=== PATIENT | female | born 1950 | race Two or more races ===

== ENCOUNTER 2019-11-08 11:57 | Outpatient (REF) | payer MEDICARE, SELFPAY ==
[2019-11-08 14:21] LABS: Alanine Aminotransferase 14 U/L (0-31); Albumin Level 4.1 g/dL (3.5-5.0); Alkaline Phosphatase 85 U/L (39-117); Anion Gap 10 (12-20); Aspartate Amino Transferase 16 U/L (5-31); Bilirubin Total 0.6 mg/dL (0.0-1.0); Blood Urea Nitrogen 11 mg/dL (9-16); Calcium 8.9 mg/dL (8.4-10.2); Carbon Dioxide 30 mmol/L (22-29); Chloride 102 mmol/L (96-108); Cholesterol 167 mg/dL; Estimated Glomerular Filt Rate > 60; Glucose Fasting 119 mg/dL (60-99); HDL Cholesterol 35 mg/dL; LDL Cholesterol Calculated 92 mg/dl; Potassium 4.4 mmol/l (3.3-5.1); Sodium 138 mmol/L (135-145); Total Protein 7.6 g/dL (6.5-8.0); Triglycerides 204 mg/dL
[2019-11-08 14:44] LABS: Vitamin D 25-OH Total 18.5 ng/mL (>30)
[2019-11-08 15:01] LABS: Folate 12.7 ng/mL (> or = 4.0); Vitamin B12 360 pg/mL (200-900)
== END 2019-11-08 11:58 | disposition home or self-care (01) ==
LOC: HO.LAB 11:57
PROVIDERS: PCP Internal Medicine; Visit Provider Internal Medicine
DX: R73.02 Impaired glucose tolerance (oral) (principal); E78.00 Pure hypercholesterolemia, unspecified; E66.01 Morbid (severe) obesity due to excess calories; E53.8 Deficiency of other specified B group vitamins; G47.33 Obstructive sleep apnea (adult) (pediatric); K21.9 Gastro-esophageal reflux disease without esophagitis; I10 Essential (primary) hypertension; E55.9 Vitamin D deficiency, unspecified
CPT/HCPCS: 36415; 80053; 80061; 82306; 82607; 82746

== ENCOUNTER 2020-05-19 13:42 | Outpatient (REF) | payer MEDICARE, SELFPAY ==
--- NOTE | ~2020-05-19 | MM_ITS ---
EXAMINATION: MM SCREENING DIGITAL BREAST TOMOSYNTHESIS, BILATERAL CLINICAL INFORMATION: Screening. Asymptomatic. The lifetime risk of breast cancer based on the Tyrer-Cuzick Model is 3%. COMPARISON: Mammography: 02/20/2019, 02/14/2018, 12/09/2016, 11/27/2015 TECHNIQUE: Digital breast tomosynthesis is performed in both the craniocaudal and mediolateral oblique views along with computer-aided detection (CAD). Synthesized 2D images are generated from the tomosynthesis. FINDINGS: There are scattered areas of fibroglandular density (ACR BI-RADS breast composition Category b). There are no significant masses, abnormal calcifications, or other abnormalities. Parenchymal pattern is similar to prior exams. No developing density. No significant changes. MM/MM tomosynthesis screening BI IMPRESSION: No mammographic evidence of malignancy. ASSESSMENT: BI-RADS 1: Negative RECOMMENDATION: Routine annual mammography screening. This patient's information was entered into a reminder system with a target due date for their next mammogram.
[2020-05-19 16:51] LABS: Estimated Average Glucose 140 mg/dL; Hemoglobin A1c % 6.5 %
[2020-05-19 16:53] LABS: Alanine Aminotransferase 13 U/L (0-31); Alkaline Phosphatase 87 U/L (39-117); Anion Gap 12 (12-20); Aspartate Amino Transferase 14 U/L (5-31); Bilirubin Total 0.5 mg/dL (0.0-1.0); Blood Urea Nitrogen 14 mg/dL (9-16); Carbon Dioxide 28 mmol/L (22-29); Chloride 103 mmol/L (96-108); Cholesterol 170 mg/dL; Estimated Glomerular Filt Rate > 60; Glucose Random 115 mg/dL (60-115); HDL Cholesterol 40 mg/dL; LDL Cholesterol Calculated 97 mg/dl; Potassium 4.6 mmol/L (3.3-5.1); Sodium 138 mmol/L (135-145); Total Protein 7.8 g/dL (6.5-8.0); Triglycerides 167 mg/dL
[2020-05-19 16:54] LABS: Creatinine Urine 82.47 mg/dL; Microalbumin Urine < 5.0 mg/L
== END 2020-05-19 13:43 | disposition home or self-care (01) ==
LOC: HO.MAMMO 13:42
PROVIDERS: Absent Provider Internal Medicine; PCP Internal Medicine; Visit Provider Internal Medicine
DX: Z12.31 Encounter for screening mammogram for malignant neoplasm of breast (principal); E78.00 Pure hypercholesterolemia, unspecified; E11.65 Type 2 diabetes mellitus with hyperglycemia
CPT/HCPCS: 36415; 77063; 77067; 80053; 80061; 82043; 83036

== ENCOUNTER 2020-12-17 10:40 | Outpatient (REF) | payer MEDICARE, SELFPAY ==
--- NOTE | ~2020-12-17 | US_ITS ---
EXAMINATION: US ABDOMEN COMPLETE CLINICAL INFORMATION: Right upper quadrant pain. COMPARISON: Ultrasound abdomen 12/09/2011. TECHNIQUE: Real-time imaging of the abdominal viscera. FINDINGS: PANCREAS: The head and body the pancreas are normal. The tail is not well visualized due to bowel gas. ABDOMINAL AORTA: The proximal, mid, and distal segments are normal in caliber. INFERIOR VENA CAVA: Visualized portions are normal. LIVER: The liver is normal in size. The liver contour is normal. Liver echotexture is increased. No focal hepatic lesion. There is no intrahepatic biliary duct dilatation seen. GALLBLADDER: Normal. The gallbladder is physiologically distended without evidence of stones, sludge, polyps, wall thickening or pericholecystic fluid. COMMON BILE DUCT: Normal in caliber measuring 0.6 cm in diameter. RIGHT KIDNEY: There is a small cyst in the lower pole measuring 8 x 4 x 7 mm. No hydronephrosis or renal calculi. The kidney measures 11.4 cm in maximum dimension. LEFT KIDNEY: Normal. No hydronephrosis. No renal calculi or focal parenchymal lesions. The kidney measures 11.0 cm in maximum dimension. SPLEEN: Normal. The spleen measures 9.4 cm in maximum dimension. FREE FLUID: None. US/US abdomen complete IMPRESSION: Slightly echogenic liver probably representing fatty infiltration. Normal-appearing gallbladder. Small right renal cyst. Limited visualization of the tail of the pancreas.
== END 2020-12-17 10:41 | disposition home or self-care (01) ==
LOC: HO.US 10:40
PROVIDERS: PCP Internal Medicine; Visit Provider Internal Medicine
DX: R10.11 Right upper quadrant pain (principal)
CPT/HCPCS: 76700

== ENCOUNTER 2021-03-19 11:08 | Outpatient (REF) | payer MEDICARE, SELFPAY ==
--- NOTE | ~2021-03-19 | XR_ITS ---
EXAMINATION: XR HIP, RIGHT CLINICAL INFORMATION: Trochanteric bursitis. Hip and back pain. COMPARISON: None TECHNIQUE: Two views of the right hip. FINDINGS: The visualized right-sided pelvic bones are normal. The right femoral head is well-positioned within the intact acetabulum. The hip joint space is normal. The femoral head is normal contour. No lytic or blastic lesion. The soft tissues are unremarkable. XR/XR hip RT min 2V IMPRESSION: No significant radiographic findings of the right hip. No evidence of degenerative joint disease or fracture.
--- NOTE | ~2021-03-19 | XR_ITS ---
EXAMINATION: XR LUMBOSACRAL SPINE CLINICAL INFORMATION: Pain COMPARISON: None TECHNIQUE: Three views of the lumbosacral spine. FINDINGS: No acute fracture or dislocation. Moderate scoliosis of the mid lumbar spine, apex right at L3. Prominent endplate ossified present throughout the lumbar spine and lower thoracic spine. Moderate loss of disc space height at L5-S1. Bulky hypertrophic facet arthropathy present throughout the lumbar spine, most notably at L5-S1. Mild bilateral sacroiliac arthrosis. Soft tissues unremarkable. XR/XR lumbar spine 2-3V IMPRESSION: No acute findings. Lumbar spondylosis as described.
== END 2021-03-19 11:09 | disposition home or self-care (01) ==
LOC: HO.LAB 11:08
PROVIDERS: PCP Internal Medicine; Visit Provider Internal Medicine
DX: M70.61 Trochanteric bursitis, right hip (principal); M54.50 Low back pain, unspecified
CPT/HCPCS: 72100; 73502

== ENCOUNTER 2021-04-01 14:07 | Outpatient (REF) | payer MEDICARE, SELFPAY ==
[2021-04-01 15:16] LABS: MANUAL DIFF FLAG NO
[2021-04-01 15:24] LABS: Basophils Percent Auto 0.4 % (0-2); Eosinophils Absolute Auto 0.2 X10*3/uL (0.0-0.4); Eosinophils Percent Auto 3.3 % (0-4); Hematocrit 41.8 % (37.0-47.0); Imm Gran Abs Auto 0.02 X10*3/uL (0.00-0.03); Imm Gran Pct Auto 0.3 % (0.0-0.4); Lymphocytes Absolute Auto 2.1 X10*3/uL (1.2-4.9); Lymphocytes Percent Auto 30.1 % (20-40); Mean Corpuscular HGB Conc 31.1 g/dl (31.0-35.0); Mean Corpuscular Hemoglobin 25.7 pg (27.0-33.0); Mean Corpuscular Volume 82.6 fL (80.0-98.0); Mean Platelet Volume 10.4 fL (9.4-12.3); Monocytes Absolute Auto 0.6 X10*3/uL (0.1-1.2); Monocytes Percent Auto 8.7 % (2-11); Neutrophils Percent Auto 57.2 % (45-73); Platelet Count 272 X10*3/uL (160-400); Red Blood Count 5.06 X10*6/uL (4.20-5.50); Red Cell Distribution Width 13.2 % (11.0-16.0); White Blood Count 6.9 X10*3/uL (4.8-10.8)
[2021-04-01 15:38] LABS: Estimated Average Glucose 137 mg/dL; Hemoglobin A1c % 6.4 %
[2021-04-01 15:49] LABS: Alanine Aminotransferase 14 U/L (0-31); Alkaline Phosphatase 83 U/L (39-117); Anion Gap 10 (12-20); Aspartate Amino Transferase 20 U/L (5-31); Bilirubin Total 0.8 mg/dL (0.0-1.0); Blood Urea Nitrogen 12 mg/dL (9-16); Calcium 9.6 mg/dL (8.4-10.2); Carbon Dioxide 31 mmol/L (22-29); Chloride 102 mmol/L (96-108); Cholesterol 157 mg/dL; Estimated Glomerular Filt Rate > 60; Glucose Random 121 mg/dL (60-115); HDL Cholesterol 37 mg/dL; LDL Cholesterol Calculated 96 mg/dl; Potassium 5.2 mmol/L (3.3-5.1); Sodium 138 mmol/L (135-145); Total Protein 7.6 g/dL (6.5-8.0); Triglycerides 122 mg/dL
[2021-04-01 16:11] LABS: Free T4 (Free Thyroxine) 1.04 ng/dL (0.71-1.85); Thyroid Stimulating Hormone 1.65 uIU/mL (0.32-4.0); Vitamin D 25-OH Total 15.8 ng/mL (>30)
[2021-04-01 16:20] LABS: Folate 9.7 ng/mL (> or = 4.0); Vitamin B12 327 pg/mL (200-900)
[2021-04-01 17:26] LABS: Creatinine Urine 85.28 mg/dL; Microalbumin Urine < 5.0 mg/L
[2021-04-01 17:31] LABS: Appearance Urine CLEAR; Color Urine YELLOW; Glucose Urine UA NEG (NEG); Leukocyte Esterase Urine TRACE (NEG); Nitrite Urine NEG (NEG); Specific Gravity - Urine 1.015 (1.005-1.025); Urine Blood TRACE (NEG); Urine Ketones NEG (NEG); Urine Protein NEG (NEG-TRACE)
[2021-04-01 17:37] LABS: Bacteria Urine 2+ /LPF; RBC Urine 0 /HPF (0); Squamous Epithelial Cell Urine 2+ /LPF
[2021-04-01 17:38] LABS: Mucus Urine 2+ /LPF; Renal Epithelial Cells Urine 1+ /LPF
== END 2021-04-01 14:08 | disposition home or self-care (01) ==
LOC: HO.LAB 14:07
PROVIDERS: Absent Provider Internal Medicine; PCP Internal Medicine; Visit Provider Physician Assistant
DX: M54.50 Low back pain, unspecified (principal); E11.65 Type 2 diabetes mellitus with hyperglycemia; E78.00 Pure hypercholesterolemia, unspecified; K21.9 Gastro-esophageal reflux disease without esophagitis; E55.9 Vitamin D deficiency, unspecified
CPT/HCPCS: 36415; 80053; 80061; 81001; 82043; 82306; 82607; 82746; 83036; 84439; 84443; 85025; 99202

== ENCOUNTER 2021-06-02 13:11 | Outpatient (REF) | payer MEDICARE, SELFPAY ==
--- NOTE | ~2021-06-02 | MM_ITS ---
EXAMINATION: MM SCREENING DIGITAL BREAST TOMOSYNTHESIS, BILATERAL CLINICAL INFORMATION: Screening. Asymptomatic. The lifetime risk of breast cancer based on the Tyrer-Cuzick Model is 3%. COMPARISON: Mammography: 05/19/2020, 02/20/2019, 02/14/2018, 12/09/2016 TECHNIQUE: Digital breast tomosynthesis is performed in both the craniocaudal and mediolateral oblique views along with computer-aided detection (CAD). Synthesized 2D images are generated from the tomosynthesis. Additional bilateral CC and left MLO views are provided. FINDINGS: There are scattered areas of fibroglandular density (ACR BI-RADS breast composition Category b). Left breast has a stable oval nodule posterior outer quadrant. Neither breast shows abnormal calcifications. The bilateral axilla are unremarkable. The CC views with nipples in profile show smooth skin thickening bilateral lateral areolar with coarsening of the stromal markings. The symmetry suggests artifact from incompletely compressed tissue. Patient will be recalled for additional imaging. MM/MM tomosynthesis screening BI IMPRESSION: -Increased attenuation and stromal markings bilateral retroareolar breasts likely incompletely compressed glandular tissue. ASSESSMENT: BI-RADS 0: Incomplete - Need Additional Imaging Evaluation RECOMMENDATION: 1. Additional views of the bilateral breasts: Bilateral spot CC nipples in profile; bilateral spot ML nipple in profile. Targeted ultrasound if warranted after review of the additional views. 2. Radiology department staff will contact the patient for additional imaging. This patient's information was entered into a reminder system with a target due date for their next mammogram.
== END 2021-06-02 13:12 | disposition home or self-care (01) ==
LOC: HO.MAMMO 13:11
PROVIDERS: Visit Provider Internal Medicine
DX: Z12.31 Encounter for screening mammogram for malignant neoplasm of breast (principal)
CPT/HCPCS: 77063; 77067

== ENCOUNTER 2021-06-08 07:56 | Outpatient (REF) | payer MEDICARE, SELFPAY ==
--- NOTE | ~2021-06-08 | MM_ITS ---
EXAMINATION: MM DIAGNOSTIC DIGITAL BREAST TOMOSYNTHESIS, BILATERAL CLINICAL INFORMATION: Recall from screening for increased attenuation stromal markings bilateral retroareolar breasts on CC views, likely incompletely compressed glandular tissue. COMPARISON: Mammography: 06/02/2021, 05/19/2020, 02/20/2019 TECHNIQUE: Digital breast tomosynthesis is performed. 2D images are generated from the tomosynthesis. The following views are obtained: Bilateral spot CC nipple in profile, bilateral spot ML nipple in profile. FINDINGS: There are scattered areas of fibroglandular density (ACR BI-RADS breast composition Category b). The additional views show no interval mass or developing density or architectural abnormality. No focal skin thickening or other suspicious finding. No significant changes. Results are discussed with the patient at time of visit. MM/MM tomosynthesis added view BI IMPRESSION: No mammographic evidence of malignancy. ASSESSMENT: BI-RADS 1: Negative RECOMMENDATION: Routine annual mammography screening. This patient's information was entered into a reminder system with a target due date for their next mammogram.
== END 2021-06-08 07:57 | disposition home or self-care (01) ==
LOC: HO.MAMMO 07:56
PROVIDERS: Visit Provider Internal Medicine
DX: N64.89 Other specified disorders of breast (principal)
CPT/HCPCS: 77062; 77066

== ENCOUNTER 2022-06-10 12:57 | Outpatient (REF) | payer MEDICARE, SELFPAY ==
--- NOTE | ~2022-06-10 | MM_ITS ---
EXAMINATION: MM SCREENING DIGITAL BREAST TOMOSYNTHESIS, BILATERAL CLINICAL INFORMATION: Screening. Asymptomatic. The lifetime risk of breast cancer based on the Tyrer-Cuzick Model is 3%. COMPARISON: Mammography: 04/08/2021, 06/02/2021, 05/19/2020, 02/20/2019 TECHNIQUE: Digital breast tomosynthesis is performed in both the craniocaudal and mediolateral oblique views along with computer-aided detection (CAD). Synthesized 2D images are generated from the tomosynthesis. FINDINGS: There are scattered areas of fibroglandular density (ACR BI-RADS breast composition Category b). There are no significant masses, abnormal calcifications, or other abnormalities. Parenchymal pattern is similar to prior studies. There is no developing density or architectural abnormality. The axilla and skin contours are unremarkable. No significant changes. MM/MM tomosynthesis screening BI IMPRESSION: No mammographic evidence of malignancy. ASSESSMENT: BI-RADS 1: Negative RECOMMENDATION: Routine annual mammography screening. This patient's information was entered into a reminder system with a target due date for their next mammogram.
== END 2022-06-10 12:58 | disposition home or self-care (01) ==
LOC: HO.MAMMO 12:57
PROVIDERS: PCP Internal Medicine; Visit Provider Internal Medicine
DX: Z12.31 Encounter for screening mammogram for malignant neoplasm of breast (principal)
CPT/HCPCS: 77063; 77067

== ENCOUNTER 2022-07-15 14:12 | Outpatient (REF) | payer MEDICARE, SELFPAY ==
--- NOTE | ~2022-07-15 | US_ITS ---
EXAMINATION: US RETROPERITONEAL LIMITED (RENAL ONLY) CLINICAL INFORMATION: Unspecified abdominal pain. COMPARISON: Ultrasound abdomen complete 12/17/2020. TECHNIQUE: Real-time imaging of the kidneys. FINDINGS: RIGHT KIDNEY: 11.3 x 6.1 x 6.3 cm (SAG x AP x TRV). The kidney is normal in size, contour, and echogenicity. Renal cortical thickness is normal. No calculi or focal parenchymal lesions. No hydronephrosis. LEFT KIDNEY: 11.8 x 6.2 x 5.0 cm (SAG x AP x TRV). The kidney is normal in size, contour, and echogenicity. Renal cortical thickness is normal. No calculi or focal parenchymal lesions. No hydronephrosis. US/US renal BI IMPRESSION: Normal-appearing kidneys.
--- NOTE | ~2022-07-15 | US_ITS ---
EXAMINATION: US PELVIS CLINICAL INFORMATION: Pelvic and perineal pain. COMPARISON: None available. TECHNIQUE: Ultrasound of the pelvis is performed using both transabdominal and transvaginal transducers along with Doppler. Transvaginal imaging is performed due to inadequate visualization transabdominally. FINDINGS: UTERUS: The uterus is anteverted and measures 8.0 x 2.8 x 3.7 cm. The double wall endometrial thickness is 0.6 mm. The uterus is smooth in contour and mildly heterogeneous echogenicity. No visible fibroid. Nabothian cysts are seen in the cervix ADNEXA: Both ovaries are visualized. There is normal color flow to the adnexa. There is no ovarian torsion. There is no pelvic ascites or fluid collection. Right ovary measures 1.6 x 1.1 x 1.7 cm for a volume 1.6 mL. Left ovary measures 1.7 x 1.3 x 1.4 cm for a volume of 1.6 mL. US/US pelvic and transvaginal IMPRESSION: No significant abnormality is seen.
== END 2022-07-15 14:13 | disposition home or self-care (01) ==
LOC: HO.US 14:12
PROVIDERS: PCP Internal Medicine; Visit Provider Internal Medicine
DX: R10.2 Pelvic and perineal pain (principal); R10.9 Unspecified abdominal pain
CPT/HCPCS: 76775; 76830; 76856

== ENCOUNTER 2022-08-08 15:08 | Outpatient (REF) | payer MEDICARE, SELFPAY ==
[2022-08-08 20:06] LABS: Alanine Aminotransferase 11 U/L (0-31); Albumin Level 3.9 g/dL (3.5-5.0); Alkaline Phosphatase 79 U/L (39-117); Anion Gap 15 (12-20); Aspartate Amino Transferase 15 U/L (5-31); Bilirubin Total 0.5 mg/dL (0.0-1.0); Blood Urea Nitrogen 16 mg/dL (9-16); Calcium 9.3 mg/dL (8.4-10.2); Carbon Dioxide 26 mmol/L (22-29); Chloride 104 mmol/L (96-108); Estimated Glomerular Filt Rate > 60; Glucose Random 95 mg/dL (60-115); Potassium 4.5 mmol/L (3.3-5.1); Sodium 140 mmol/L (135-145)
[2022-08-08 20:22] LABS: TSH reflex Free T4 1.85 uIU/mL (0.32-4.0)
== END 2022-08-08 15:09 | disposition home or self-care (01) ==
LOC: HO.LAB 15:08
PROVIDERS: PCP Internal Medicine; Visit Provider Nurse Practitioner Family
DX: Z01.812 Encounter for preprocedural laboratory examination (principal)
CPT/HCPCS: 36415; 80053; 84443; 85025

== ENCOUNTER 2022-08-15 08:10 | Day surgery (SDC) | payer MEDICARE, SELFPAY ==
[2022-08-10 09:51] VITALS: BMI 38.6
--- NOTE | 2022-08-12 08:06 | MHC.SHP ---
Pre-Procedural Eval Section A Date of Service: 08/12/22 The patient is an INPATIENT: No Changes since office visit: No Cold of Flu in the past 2 weeks, No New Medical Problems, No Changes in Medication and No Patient answered all questions The History & Physical has been completed within 30 days and I have reviewed it.: Yes Section B Chief Complaint: Age-related nuclear cataract, right eye Allergies: Allergies Allergy/AdvReac Type Severity Reaction Status Date / Time No Known Allergies Allergy Mild NONE Verified 08/08/22 14:48 Plan Diagnosis/Plan: Unchanged I have reviewed the history and physical and performed a pertinent physical examination on my patient. No changes have occurred unless specified. Time Spent With Patient Time: Total time managing care of this patient today ____ minutes.
--- NOTE | 2022-08-12 10:24 | HO.ANESPROP2 ---
Documented by User: Kristie Amato NP 08/12/22 10:24 HPI - Anesthesia Eval Consult details Narrative: 72yo F for Right Cataract Extraction IOL Insertion PCP cleared No previous cataract on record [facility] Active Problems Active Problems: All Active Problems (Updated 08/10/22 @ 09:50 by Ninoska Jeronimo, RAI) Obesity due to excess calories (Acute) Perioral tremor (Acute) Generalized anxiety disorder (Acute) Trochanteric bursitis (Acute) Right flank pain (Acute) Pelvic pain (Acute) Diarrhea (Acute) Obesity (Acute) Vitamin D deficiency (Acute) Hypertension (Acute) GERD (gastroesophageal reflux disease) (Acute) Obstructive sleep apnea (Acute) Vitamin B12 deficiency (Acute) Hypercholesterolemia (Acute) Type 2 diabetes mellitus with hyperglycemia (Acute) Past Medical History Medical History GERD (gastroesophageal reflux disease) Glaucoma Hypercholesterolemia Hypertension Low back pain Obesity Obstructive sleep apnea RUQ abdominal pain Type 2 diabetes mellitus with hyperglycemia Vision loss, left eye Vitamin B12 deficiency Vitamin D deficiency Family History Family History Father Diabetes Hypertension FH: prostate cancer Mother Hypertension Diabetes Stroke CVD (cardiovascular disease) CAD (coronary artery disease) Daughter Cerebrovascular disease Brother Primary cancer of bone marrow Surgical History Surgical History Hx of colonoscopy Social History Social History Housing: House Are you a primary caretaker to a significant other at home: No Do you presently have visiting nurse or other home services: No Alcohol intake: never Patient Tobacco Use Status: Never used Tobacco e-Cigarette/Vaping Use: Never Used Second Hand Smoke Exposure: No Use of substances other than those prescribed or required for medical reasons: No Have you been hit, kicked, punched, or otherwise hurt by someone within the past year? If so, by whom?: No Are you DNR?: No Advance Directives: No Advance Directives Information Provided: Yes Advance Directives on File: No Recently lost weight without trying: No Nutrition Risks: No Nutritional Risk service: No Current occupational status: retired Cognitive needs: No Hearing needs: No Vision needs: No Meds Allergies Allergy/AdvReac Type Severity Reaction Status Date / Time No Known Allergies Allergy Mild NONE Verified 08/08/22 14:48 Home Medications Medication Instructions Recorded Confirmed Last Taken Type latanoprost 0.005 % eye drops 1 drp ophthalmic (eye) QPM 11/14/19 08/10/22 Unknown History timolol 0.5 % eye drops 1 drp ophthalmic (eye) DAILY 11/14/19 08/10/22 Unknown History dorzolamide 22.3 mg-timolol 6.8 1 drp ophthalmic (eye) 08/08/22 08/08/22 Unknown History mg/mL eye drops psyllium husk 0.52 gram capsule 0.52 g PO BEDTIME PRN constipation 08/10/22 08/10/22 Unknown History (Daily Fiber) Exam Exam Date and Time: August 12, 2022 1024 Height,Weight and Vital Signs: Height 5 ft 4 in Weight 102.058 kg Assessment and Plan Assessment Anesthesia Assessment: Chart Reviewed Documented by User: Guera Reich MD 08/15/22 10:11 [facility] Past Medical History Medical History GERD (gastroesophageal reflux disease) Glaucoma Hypercholesterolemia Hypertension Low back pain Obesity Obstructive sleep apnea RUQ abdominal pain Type 2 diabetes mellitus with hyperglycemia Vision loss, left eye Vitamin B12 deficiency Vitamin D deficiency Family History Family History Father Diabetes Hypertension FH: prostate cancer Mother Hypertension Diabetes Stroke CVD (cardiovascular disease) CAD (coronary artery disease) Daughter Cerebrovascular disease Brother Primary cancer of bone marrow Surgical History Surgical History Hx of colonoscopy History of Problems with Anesthesia: No Social History Social History Housing: House Are you a primary caretaker to a significant other at home: No Do you presently have visiting nurse or other home services: No Alcohol intake: never Patient Tobacco Use Status: Never used Tobacco e-Cigarette/Vaping Use: Never Used Second Hand Smoke Exposure: No Use of substances other than those prescribed or required for medical reasons: No Have you been hit, kicked, punched, or otherwise hurt by someone within the past year? If so, by whom?: No Are you DNR?: No Advance Directives: No Advance Directives Information Provided: Yes Advance Directives on File: No Recently lost weight without trying: No Nutrition Risks: No Nutritional Risk service: No Current occupational status: retired Cognitive needs: No Hearing needs: No Vision needs: No Meds Allergies Allergy/AdvReac Type Severity Reaction Status Date / Time No Known Allergies Allergy Mild NONE Verified 08/08/22 14:48 Home Medications Medication Instructions Recorded Confirmed Last Taken Type latanoprost 0.005 % eye drops 1 drp ophthalmic (eye) QPM 11/14/19 08/10/22 Unknown History timolol 0.5 % eye drops 1 drp ophthalmic (eye) DAILY 11/14/19 08/10/22 Unknown History dorzolamide 22.3 mg-timolol 6.8 1 drp ophthalmic (eye) 08/08/22 08/08/22 Unknown History mg/mL eye drops psyllium husk 0.52 gram capsule 0.52 g PO BEDTIME PRN constipation 08/10/22 08/10/22 Unknown History (Daily Fiber) Exam Airway Mallampati Class: II TM Dist: >3cm Neck ROM: Full Denture: Upper Loose/Missing/Broken Teeth: Yes and Upper Heart: RRR Lungs: CTA Assessment and Plan Assessment Anesthesia Assessment: Anesthesia Plan Discussed Final Anesthetic Review History of Problems with Anesthesia: No NPO: Yes ASA Class: III Final Preanesthetic Review: Meds/Allgs Chart Reviewed, Consent Obtained/Reviewed and Anes Risks/Benef Reviewed Patient Risk: Intermediate Procedure Risk: Low Anesthetic Plan Anesthetic Plan: MAC:
[2022-08-15 10:07] VITALS: BP 199/100; PULSE 76; RESP 18; TEMP 37; O2SAT 97
--- NOTE | 2022-08-15 10:52 | HO.PNOPHT ---
Ophthalmology Procedure Procedure Date of Service: 08/15/22 Ophthalmology Viscoelastic: Healjuani Irvingt Dual Pack Pro Ophthalmology Lenses: TECNIS XV4329 (23.5) Procedure Notes: PREOPERATIVE DIAGNOSIS: Decreased visual acuity right eye secondary to cataract POSTOPERATIVE DIAGNOSIS: Same PROCEDURE: Right cataract extraction with intraocular lens insertion SURGEON: Jay Wallace M.D. ANESTHESIA: Topical/MAC ESTIMATED BLOOD LOSS: None COMPLICATIONS: None After obtaining informed consent, the patient was brought to the operating room suite and placed in the supine position. After adequate sedation per anesthesia, topical drops of Tetracaine were given to the right eye. The eye was then prepped and draped in the usual sterile fashion. The operating room microscope was then positioned over the operative eye and a lid speculum placed. A paracentesis was created. Viscoelastic was then instilled into the anterior chamber. A three plane incision was then created temporally, utilizing a 2.85 mm keratome. Capsulotomy forceps were then utilized to create a circular tear capsulotomy. Hydrodissection and hydrodelineation were carried out until adequate mobilization of the nucleus occurred. Phacoemulsification was then utilized to remove the dense central nucleus followed by removal of the cortical material utilizing the automated aspiration irrigation unit. Viscoelastic was instilled into the posterior capsular bag followed by placement of a posterior chamber intraocular lens without difficulty. The residual Viscoelastic was then removed utilizing the automated IA machine. The wound was checked and found to be watertight. The patient tolerated the procedure well and the lid speculum was removed. Intracameral injection of Vigamox 0.1 mL followed by a subtenon injection of Kenalog-40 0.2 mL were administered. The patient will be seen in the a.m.
[2022-08-15 11:16] VITALS: BP 148/83; PULSE 75; RESP 20; TEMP 36.9; O2SAT 99
== END 2022-08-15 11:34 | disposition home or self-care (01) ==
PROVIDERS: PCP Internal Medicine; Visit Provider Ophthalmology
PROC: (CPT 66985; principal; 2022-08-15 11:00)
DX: H25.11 Age-related nuclear cataract, right eye (principal); H54.7 Unspecified visual loss; E11.9 Type 2 diabetes mellitus without complications; I10 Essential (primary) hypertension; E78.00 Pure hypercholesterolemia, unspecified; Z79.899 Other long term (current) drug therapy
CPT/HCPCS: 66984; J3010; J3301; V2632

== ENCOUNTER 2022-10-11 13:07 | Outpatient (REF) | payer MEDICARE, SELFPAY ==
[2022-10-11 13:25] LABS: MANUAL DIFF FLAG NO
[2022-10-11 14:05] LABS: Basophils Percent Auto 0.5 % (0-2); Eosinophils Absolute Auto 0.2 X10*3/uL (0.0-0.4); Eosinophils Percent Auto 2.9 % (0-4); Hematocrit 42.9 % (37.0-47.0); Hemoglobin 13.6 g/dl (12.0-16.0); Imm Gran Abs Auto 0.02 X10*3/uL (0.00-0.03); Imm Gran Pct Auto 0.3 % (0.0-0.4); Lymphocytes Absolute Auto 2.2 X10*3/uL (1.2-4.9); Lymphocytes Percent Auto 27.6 % (20-40); Mean Corpuscular HGB Conc 31.7 g/dl (31.0-35.0); Mean Corpuscular Hemoglobin 26.2 pg (27.0-33.0); Mean Corpuscular Volume 82.7 fL (80.0-98.0); Mean Platelet Volume 11.1 fL (9.4-12.3); Monocytes Absolute Auto 0.6 X10*3/uL (0.1-1.2); Monocytes Percent Auto 7.4 % (2-11); Neutrophils Absolute Auto 4.8 x10*3/uL (2.0-8.3); Neutrophils Percent Auto 61.3 % (45-73); Platelet Count 272 X10*3/uL (160-400); Red Blood Count 5.19 X10*6/uL (4.20-5.50); Red Cell Distribution Width 13.2 % (11.0-16.0); White Blood Count 7.8 X10*3/uL (4.8-10.8)
[2022-10-11 14:20] LABS: Appearance Urine Clear; Color Urine Yellow; Glucose Urine UA Negative (Negative); Leukocyte Esterase Urine Trace (Negative); Nitrite Urine Negative (Negative); Specific Gravity - Urine 1.015 (1.005-1.025); UMIC TRIGGER UACC YES; Urine Blood Negative (Negative); Urine Ketones Negative (Negative); Urine Protein Negative (Neg-Trace)
[2022-10-11 14:24] LABS: Bacteria Urine None Seen (None Seen); Hyaline Casts Urine 0-2 /LPF (0-2); RBC Urine 0-2 /HPF (0-2); WBC Urine 0-5 /HPF (0-5)
[2022-10-11 15:06] LABS: Creatinine Urine 105.05 mg/dL; Microalbumin Urine < 5.0 mg/L
[2022-10-11 15:39] LABS: Folate 5.5 ng/mL (> or = 4.0); Vitamin B12 292 pg/mL (200-900)
[2022-10-11 16:15] LABS: Alanine Aminotransferase 9 U/L (0-31); Albumin Level 3.9 g/dL (3.5-5.0); Alkaline Phosphatase 83 U/L (39-117); Anion Gap 10 (12-20); Aspartate Amino Transferase 14 U/L (5-31); Bilirubin Total 0.4 mg/dL (0.0-1.0); Blood Urea Nitrogen 11 mg/dL (9-16); Calcium 9.3 mg/dL (8.4-10.2); Carbon Dioxide 27 mmol/L (22-29); Chloride 107 mmol/L (96-108); Cholesterol 189 mg/dL (<200); Estimated Glomerular Filt Rate 58; Glucose Random 117 mg/dL (60-115); HDL Cholesterol 39 mg/dL (>40); LDL Cholesterol Calculated 120 mg/dL (<100); Potassium 4.4 mmol/L (3.3-5.1); Sodium 140 mmol/L (135-145); Total Protein 7.8 g/dL (6.5-8.0); Triglycerides 153 mg/dL (<150)
[2022-10-11 16:29] LABS: Free T4 (Free Thyroxine) 1.08 ng/dL (0.71-1.85); Thyroid Stimulating Hormone 2.35 uIU/mL (0.32-4.0)
[2022-10-12 04:10] LABS: HBc Num1 0.09 S/CO (0.00-0.79); HBsAGNum1 0.38 S/CO (0.00-0.99); Hepatitis B Core Antibody Nonreactive (Nonreactive); Hepatitis B Surface Antigen Negative (Negative); ~HepC Num1 0.06 S/CO (0.00-0.79); ~Hepatitis B Surface Antibody NONREACTIVE (Nonreactive); ~Hepatitis C Antibody Nonreactive (Nonreactive)
== END 2022-10-11 13:08 | disposition home or self-care (01) ==
LOC: HO.LAB 13:07
PROVIDERS: PCP Internal Medicine; Visit Provider Internal Medicine
DX: E11.65 Type 2 diabetes mellitus with hyperglycemia (principal); R79.89 Other specified abnormal findings of blood chemistry; E78.00 Pure hypercholesterolemia, unspecified; E55.9 Vitamin D deficiency, unspecified
CPT/HCPCS: 36415; 80053; 80061; 81001; 82043; 82306; 82570; 82607; 82746; 84439; 84443; 85025; 86704; 86706; 86803; 87340

== ENCOUNTER 2022-10-14 12:36 | Outpatient (AMB) | payer MEDICARE, SELFPAY ==
--- NOTE | 2022-10-14 12:51 | A.OFFPC_ITS ---
Vital Signs 10/14/22 12:53 10/14/22 13:16 Height 5 ft 4 in Weight 224 lb BMI 38.4 BP 140/64 H 134/64 Blood Pressure Location Lt brachial Lt brachial Position Sitting Sitting Pulse 79 Pulse Source Pulse Oximeter Temp Source Skin Pulse Oximetry (%) 97 Oxygen Delivery Method Room Air Intake Visit Reasons: Diabetes mellitus flank pain Allergies No Known Allergies Allergy (Mild, Verified 08/08/22 14:48) NONE Medication List - Last Reconciled 10/14/22 by Ramesh Aguillon MD cholecalciferol (vitamin D3) 50 mcg PO DAILY 90 days cyanocobalamin (vitamin B-12) 1,000 mcg PO DAILY dorzolamide-timolol 22.3-6.8 mg/mL 1 drp ophthalmic (eye) latanoprost 0.005% 1 drp ophthalmic (eye) QPM lisinopril 5 mg PO DAILY omeprazole 20 mg PO DAILY psyllium husk (Daily Fiber) 0.52 grams PO BEDTIME PRN simvastatin 20 mg PO BEDTIME timolol 0.5% 1 drp ophthalmic (eye) DAILY tramadol 50 mg PO BID PRN 90 days Tobacco use date assessed: 10/14/22 Fall risk assessment: No Falls in past year Last assessed Fall Risk: 10/14/22 Dental Screening Dental Screen Date: 10/14/22 Did you have a dental visit in the last 12 months?: Yes Did you have a dental problem in the last 6 months where you did not have access to dental care?: No Was dental information given to patient?: Patient has dentist HPI Diabetes mellitus flank pain HPI Details 72-year-old obese female with diabetes m ellitus controlled hypercholesterolemia hypertension coming in for follow-up. Last seen in August 2022 for preoperative evaluation for cataract surgery. patient is here for follow-up patient's colonoscopy is up-to-date, mammogram is up-to-date cataract surgery and feels good seen better. As for cholesterol patient did try to stop the cholesterol medication for 1 month. She just tried it and she did not really feel bad with or without it but she has started taking it back again. [facility] Medical History GERD (gastroesophageal reflux disease) Glaucoma Hypercholesterolemia Hypertension Low back pain Obesity Obstructive sleep apnea RUQ abdominal pain Type 2 diabetes mellitus with hyperglycemia Vision loss, left eye Vitamin B12 deficiency Vitamin D deficiency Surgical History Hx of colonoscopy Family History Father Diabetes Hypertension FH: prostate cancer Mother Hypertension Diabetes Stroke CVD (cardiovascular disease) CAD (coronary artery disease) Daughter Cerebrovascular disease Brother Primary cancer of bone marrow Social History Housing: House Are you a primary laboratory animal caretaker to a significant other at home: No Do you presently have visiting nurse or other home services: No Alcohol intake: never Patient Tobacco Use Status: Never used Tobacco e-Cigarette/Vaping Use: Never Used Second Hand Smoke Exposure: No service: No Current occupational status: retired Cognitive needs: No Hearing needs: No Vision needs: No Questionnaire Thrive Questionnaire Date Thrive assessed: 06/28/22 AUDIT C Alcohol Use Questionnaire (AUDIT-C) 1. How often do you have a drink containing alcohol?: Never 3. How often do you have six or more drinks on one occasion?: Never Total Score: 0 CLAUDETTE-7 AMB Questionnaire CLAUDETTE-7 Date CLAUDETTE - 7 assessed: 06/28/22 Source: Developed by Drs. Mo Bhatt, Tania Humphries, Travis Bowles and colleagues, with an educational laura from [employer]. Physical exam (Primary Care) Vital Signs: Last Vital Signs Pulse 79 10/14/22 12:53 BP 140/64 H 10/14/22 12:53 Pulse Ox 97 10/14/22 12:53 Oxygen Delivery Method Room Air 10/14/22 12:53 BMI result Body Mass Index 38.4 Tobacco/Smoking Status: Tobacco use Status Tobacco use date assessed 10/14/22 10/14/22 12:59 Patient Tobacco Use Status Never used Tobacco 10/14/22 12:51 e-Cigarette/Vaping Use Never Used 10/14/22 12:51 Thrive Assessment: Date of Thrive Assessment Date Thrive assessed 06/28/22 10/14/22 12:51 Const General: alert; No acute distress Eyes Conjunctivae: conjunctivae normal Resp Auscultation: clear to auscultation bilaterally Cardio Rate: regular rate Rhythm: regular rhythm GI Inspection: Yes normal to inspection Extrem General: Yes normal to inspection and No edema Results AMB Hemoglobin A1c AMB Hemoglobin A1c 6.0 % Last Edit by CHEPE Napier on 10/14/22 13:02 Results Reviewed Results Reviewed: Laboratory Last Values Hgb A1c (Clinic) 6.0 % (4.0-6.0) 10/14/22 12:51 Assessment and Plan Assessment & Plan (1) Type 2 diabetes mellitus with hyperglycemia: Comment: Dr. Soliman Code(s): E11.65 - Type 2 diabetes mellitus with hyperglycemia Qualifiers: Diabetes mellitus superintendent container terminal insulin use: without superintendent container terminal use Qualified Code(s): E11.65 - Type 2 diabetes mellitus with hyperglycemia Plan: Decrease the amount of carbohydrate intake, pasta, bread, rice and potatoes are all sugar and that is aside from all the sweet stuff, remember that fruits are good but they are Sweet also. Hemoglobin A1c goal of less than 7.0. Patient is diet controlled (2) Hypercholesterolemia: Code(s): E78.00 - Pure hypercholesterolemia, unspecified Plan: Avoid fried foods, chicken skin, eggs, butter margarine, pastries and meat. Be it pork or beef they have a lot of cholesterol LDL goal of less than 100 and triglyceride of less than 150 patient is on simvastatin concern about the blood work LDL is high (3) GERD (gastroesophageal reflux disease): Code(s): K21.9 - Gastro-esophageal reflux disease without esophagitis Plan: Avoid the foods that causes that usually spicy foods, tomato products, juices, coffee, soda and foods that your sensitive to. After eating do not lie down, allow 3-4 hours before in lie down. And keep the head of bed above 30 degrees to avoid the acid from going up. On omeprazole (4) Hypertension: Code(s): I10 - Essential (primary) hypertension Qualifiers: Hypertension type: essential hypertension Qualified Code(s): I10 - Essential (primary) hypertension Plan: Continue with blood pressure medication. Decrease salt intake and exercise patient takes lisinopril 5 mg once a day (5) Obesity: Code(s): E66.9 - Obesity, unspecified Qualifiers: Obesity type: due to excess calories Obesity classification: adult class 3 (BMI >= 40) Serious obesity comorbidity presence: with serious comorbidity Body mass index: BMI 40.0-44.9 Qualified Code(s): E66.01 - Morbid (severe) obesity due to excess calories; Z68.41 - Body mass index [BMI]40.0- 44.9, adult Plan: Diet and exercise (6) Generalized anxiety disorder: Code(s): F41.1 - Generalized anxiety disorder Orders: Orders AMB Hemoglobin A1c Today E11.65 - Type 2 diabetes mellitus with hyperglycemia Medications: New cyanocobalamin (vitamin B-12) 1,000 mcg PO DAILY 30 caps 3RF E53.8 - Deficiency of other specified B group vitamins cholecalciferol (vitamin D3) 50 mcg PO DAILY 90 days 90 caps 3RF E53.8 - Deficiency of other specified B group vitamins, E55.9 - Vitamin D deficiency, unspecified Coding Level of Care Code Est Pt Level 4 (32777) Diagnoses Type 2 diabetes mellitus with hyperglycemia, without long-term current use of insulin E11.65 Diabetes mellitus superintendent container terminal insulin use: without superintendent container terminal use Hypercholesterolemia E78.00 GERD (gastroesophageal reflux disease) K21.9 Essential hypertension I10 Hypertension type: essential hypertension Class 3 severe obesity due to excess calories with serious comorbidity and body mass index (BMI) of 40.0 to 44.9 in adult E66.01; Z68.41 Obesity type: due to excess calories Obesity classification: adult class 3 (BMI >= 40) Serious obesity comorbidity presence: with serious comorbidity Body mass index: BMI 40.0-44.9 Generalized anxiety disorder F41.1
[2022-10-14 12:53] VITALS: BP 140/64; PULSE 79; O2SAT 97; BMI 38.4
[2022-10-14 13:16] VITALS: BP 134/64
== END 2022-10-14 13:36 | disposition home or self-care (01) ==
PROVIDERS: PCP Internal Medicine; Visit Provider Internal Medicine
DX: E11.65 Type 2 diabetes mellitus with hyperglycemia (principal); K21.9 Gastro-esophageal reflux disease without esophagitis; E66.01 Morbid (severe) obesity due to excess calories; Z68.41 Body mass index [BMI] 40.0-44.9, adult; Z23 Encounter for immunization; I10 Essential (primary) hypertension; E78.00 Pure hypercholesterolemia, unspecified; F41.1 Generalized anxiety disorder
CPT/HCPCS: 83036; 90471; 90714; 99214

== ENCOUNTER 2023-01-27 14:26 | Outpatient (AMB) | payer MEDICARE, SELFPAY ==
[2023-01-27 14:29] VITALS: BP 148/78; PULSE 102; O2SAT 97; BMI 37.4
--- NOTE | 2023-01-27 14:29 | MHC.PC.OV ---
Vital Signs 01/27/23 14:29 Height 5 ft 4 in Weight 218 lb 0.2 oz BMI 37.4 BP 148/78 H Blood Pressure Location Lt brachial Position Sitting Pulse 102 H Pulse Source Pulse Oximeter Pulse Oximetry (%) 97 Oxygen Delivery Method Room Air Intake Visit Reasons: 3mth f/u Transport Aide Required: No Allergies No Known Allergies Allergy (Mild, Verified 01/27/23 14:36) NONE Medication List - Last Reconciled 01/27/23 by Ramesh Aguillon MD baclofen 10 mg PO BID cholecalciferol (vitamin D3) 50 mcg PO DAILY 90 days cyanocobalamin (vitamin B-12) 1,000 mcg PO DAILY dorzolamide-timolol 22.3-6.8 mg/mL 1 drp ophthalmic (eye) doxycycline hyclate 100 mg PO BID latanoprost 0.005% 1 drp ophthalmic (eye) QPM lisinopril 5 mg PO DAILY omeprazole 20 mg PO DAILY psyllium husk (Daily Fiber) 0.52 grams PO BEDTIME PRN simvastatin 20 mg PO BEDTIME timolol 0.5% 1 drp ophthalmic (eye) DAILY tramadol 50 mg PO BID PRN 90 days Tobacco use date assessed: 01/27/23 Fall risk assessment: No Falls in past year Last assessed Fall Risk: 01/27/23 HPI 3mth f/u HPI Details 72-year-old female with controlled diabetes mellitus hypercholesterolemia GERD hypertension and generalized anxiety disorder last seen in October 2022. Patient is up-to-date with colonoscopy, mammogram. 2 weeks fever, , no dysuria, no diarrhea,- cough PFSH Medical History GERD (gastroesophageal reflux disease) Glaucoma Hypercholesterolemia Hypertension Low back pain Obesity Obstructive sleep apnea RUQ abdominal pain Type 2 diabetes mellitus with hyperglycemia Vision loss, left eye Vitamin B12 deficiency Vitamin D deficiency Surgical History Hx of colonoscopy Family History Father Diabetes Hypertension FH: prostate cancer Mother Hypertension Diabetes Stroke CVD (cardiovascular disease) CAD (coronary artery disease) Daughter Cerebrovascular disease Brother Primary cancer of bone marrow Social History Housing: House Are you a primary technical healthcare consultant to a significant other at home: No Do you presently have visiting nurse or other home services: No Alcohol intake: never Patient Tobacco Use Status: Never used Tobacco e-Cigarette/Vaping Use: Never Used Second Hand Smoke Exposure: No service: No Current occupational status: retired Cognitive needs: No Hearing needs: No Vision needs: No Questionnaire Thrive Questionnaire Date Thrive assessed: 06/28/22 AUDIT C Alcohol Use Questionnaire (AUDIT-C) 1. How often do you have a drink containing alcohol?: Never 3. How often do you have six or more drinks on one occasion?: Never Total Score: 0 CLAUDETTE-7 AMB Questionnaire CLAUDETTE-7 Date CLAUDETTE - 7 assessed: 06/28/22 Source: Developed by Drs. Mo Bhatt, Tania Humphries, Travis Bowles and colleagues, with an educational laura from [employer]. Physical exam (Primary Care) Vital Signs: Last Vital Signs Pulse 102 H 01/27/23 14:29 BP 148/78 H 01/27/23 14:29 Pulse Ox 97 01/27/23 14:29 Oxygen Delivery Method Room Air 01/27/23 14:29 BMI result Body Mass Index 37.4 Tobacco/Smoking Status: Tobacco use Status Tobacco use date assessed 01/27/23 01/27/23 14:29 Patient Tobacco Use Status Never used Tobacco 01/27/23 14:29 e-Cigarette/Vaping Use Never Used 01/27/23 14:29 Thrive Assessment: Date of Thrive Assessment Date Thrive assessed 06/28/22 01/27/23 14:29 Const General: alert; No acute distress Eyes Conjunctivae: conjunctivae normal Resp Other: No wheezing, crackles on the right lower lung field otherwise left is clear Cardio Rate: regular rate Rhythm: regular rhythm GI Other: No right upper quadrant pain has mild tenderness on the right paravertebral thoracic area but no guarding, no redness Inspection: Yes normal to inspection Extrem General: Yes normal to inspection and No edema Assessment and Plan Assessment & Plan (1) Type 2 diabetes mellitus with hyperglycemia: Comment: Dr. Soliman Code(s): E11.65 - Type 2 diabetes mellitus with hyperglycemia Qualifiers: Diabetes mellitus residential insulin use: without residential use Qualified Code(s): E11.65 - Type 2 diabetes mellitus with hyperglycemia Plan: Decrease the amount of carbohydrate intake, pasta, bread, rice and potatoes are all sugar and that is aside from all the sweet stuff, remember that fruits are good but they are Sweet also. Hemoglobin A1c goal of less than 7.0 patient is on diet control (2) Hypercholesterolemia: Code(s): E78.00 - Pure hypercholesterolemia, unspecified Plan: Avoid fried foods, chicken skin, eggs, butter margarine, pastries and meat. Be it pork or beef they have a lot of cholesterol LDL goal of less than 100 and triglyceride of less than 150. Patient on simvastatin 20 mg at bedtime (3) GERD (gastroesophageal reflux disease): Code(s): K21.9 - Gastro-esophageal reflux disease without esophagitis Plan: Avoid the foods that causes that usually spicy foods, tomato products, juices, coffee, soda and foods that your sensitive to. After eating do not lie down, allow 3-4 hours before in lie down. And keep the head of bed above 30 degrees to avoid the acid from going up. (4) Hypertension: Code(s): I10 - Essential (primary) hypertension Qualifiers: Hypertension type: essential hypertension Qualified Code(s): I10 - Essential (primary) hypertension Plan: Continue with blood pressure medication. Decrease salt intake and exercise patient takes lisinopril 5 mg once a day (5) Obesity: Code(s): E66.9 - Obesity, unspecified Qualifiers: Obesity type: due to excess calories Obesity classification: adult class 3 (BMI >= 40) Serious obesity comorbidity presence: with serious comorbidity Body mass index: BMI 40.0-44.9 Qualified Code(s): E66.01 - Morbid (severe) obesity due to excess calories; Z68.41 - Body mass index [BMI]40.0-44.9, adult Plan: Diet and exercise (6) Right flank pain: Code(s): R10.9 - Unspecified abdominal pain (7) Cough: Code(s): R05.9 - Cough, unspecified (8) Pneumonia: Code(s): J18.9 - Pneumonia, unspecified organism Orders: Orders Lipid Panel 3 Months E78.00 - Pure hypercholesterolemia, unspecified Comprehensive Met. Panel 3 Months E78.00 - Pure hypercholesterolemia, unspecified Complete Blood Count Auto Diff Today R05.9 - Cough, unspecified Comprehensive Met. Panel Today R05.9 - Cough, unspecified UA CC w/rflx Micro + Cult Today R10.9 - Unspecified abdominal pain, R30.0 - Dysuria XR chest 2V Today R05.9 - Cough, unspecified SARS-CoV2/FLU/RSV Today R05.9 - Cough, unspecified Hemoglobin A1c Today E11.65 - Type 2 diabetes mellitus with hyperglycemia Medications: New baclofen 10 mg PO BID 30 tabs 0RF R10.9 - Unspecified abdominal pain doxycycline hyclate 100 mg PO BID 14 caps 0RF J18.9 - Pneumonia, unspecified organism, R05.9 - Cough, unspecified Coding Level of Care Code Est Pt Level 4 (30601) Diagnoses Type 2 diabetes mellitus with hyperglycemia, without long-term current use of insulin E11.65 Diabetes mellitus residential insulin use: without termite control servicer use Hypercholesterolemia E78.00 GERD (gastroesophageal reflux disease) K21.9 Essential hypertension I10 Hypertension type: essential hypertension Class 3 severe obesity due to excess calories with serious comorbidity and body mass index (BMI) of 40.0 to 44.9 in adult E66.01; Z68.41 Obesity type: due to excess calories Obesity classification: adult class 3 (BMI >= 40) Serious obesity comorbidity presence: with serious comorbidity Body mass index: BMI 40.0-44.9 Right flank pain R10.9 Cough R05.9 Pneumonia J18.9
== END 2023-01-27 15:41 | disposition home or self-care (01) ==
PROVIDERS: PCP Internal Medicine; Visit Provider Internal Medicine
DX: E11.65 Type 2 diabetes mellitus with hyperglycemia (principal); E66.01 Morbid (severe) obesity due to excess calories; Z68.41 Body mass index [BMI] 40.0-44.9, adult; E78.00 Pure hypercholesterolemia, unspecified; K21.9 Gastro-esophageal reflux disease without esophagitis; I10 Essential (primary) hypertension; R10.9 Unspecified abdominal pain; R05.9 Cough, unspecified; J18.9 Pneumonia, unspecified organism
CPT/HCPCS: 99214

== ENCOUNTER 2023-01-27 15:06 | Outpatient (REF) | payer MEDICARE, SELFPAY | END 2023-01-27 15:07 | disposition home or self-care (01) | LOC: HO.XRAY 15:06 | PROVIDERS: PCP Internal Medicine; Visit Provider Internal Medicine | DX: R05.9 Cough, unspecified (principal) | CPT/HCPCS: 71046 ==

== ENCOUNTER 2023-05-03 10:43 | Outpatient (AMB) | payer MEDICARE, SELFPAY ==
[2023-05-03 10:48] VITALS: BP 130/68; PULSE 78; O2SAT 98; BMI 37.3
--- NOTE | 2023-05-03 10:48 | A.OFFPC_ITS ---
Vital Signs 05/03/23 10:48 Height 5 ft 4 in Weight 217 lb 0.8 oz BMI 37.3 BP 130/68 Blood Pressure Location Lt brachial Position Sitting Pulse 78 Pulse Source Pulse Oximeter Pulse Oximetry (%) 98 Oxygen Delivery Method Room Air Intake Visit Reasons: Follow up Intake Note: Patient is here to follow up Environmental Services Specialist Required: No Allergies No Known Allergies Allergy (Mild, Verified 05/03/23 10:48) NONE Medication List - Last Reconciled 05/03/23 by Ramesh Aguillon MD baclofen 10 mg PO BID cholecalciferol (vitamin D3) 50 mcg PO DAILY 90 days cyanocobalamin (vitamin B-12) 1,000 mcg PO DAILY dorzolamide-timolol 22.3-6.8 mg/mL 1 drp ophthalmic (eye) latanoprost 0.005% 1 drp ophthalmic (eye) QPM lisinopril 5 mg PO DAILY omeprazole 20 mg PO DAILY psyllium husk (Daily Fiber) 0.52 grams PO BEDTIME PRN simvastatin 20 mg PO BEDTIME timolol 0.5% 1 drp ophthalmic (eye) DAILY tramadol 50 mg PO BID PRN 90 days Tobacco use date assessed: 05/03/23 Fall risk assessment: No Falls in past year Last assessed Fall Risk: 05/03/23 Dental Screening Dental Screen Date: 05/03/23 Did you have a dental visit in the last 12 months?: No Did you have a dental problem in the last 6 months where you did not have access to dental care?: No HPI Follow up HPI Details 72-year-old obese female with controlled diabetes mellitus hypertension hypercholesterolemia GERD coming in for follow-up. Last seen in January 2023. Patient's colonoscopy is up-to-date mammogram is up-to-date [facility] Medical History GERD (gastroesophageal reflux disease) Glaucoma Hypercholesterolemia Hypertension Low back pain Obesity Obstructive sleep apnea RUQ abdominal pain Type 2 diabetes mellitus with hyperglycemia Vision loss, left eye Vitamin B12 deficiency Vitamin D deficiency Surgical History Hx of colonoscopy Family History Father Diabetes Hypertension FH: prostate cancer Mother Hypertension Diabetes Stroke CVD (cardiovascular disease) CAD (coronary artery disease) Daughter Cerebrovascular disease Brother Primary cancer of bone marrow Social History Housing: House Are you a primary eye care professional to a significant other at home: No Do you presently have visiting nurse or other home services: No Alcohol intake: never Patient Tobacco Use Status: Never used Tobacco e-Cigarette/Vaping Use: Never Used Second Hand Smoke Exposure: No service: No Current occupational status: retired Cognitive needs: No Hearing needs: No Vision needs: No Questionnaire Thrive Questionnaire Date Thrive assessed: 05/03/23 I am a: Patient What is your living situation today?: I have a steady place to live Within the past 12 months, did the food you bought not last and you didn't have the money to get more?: Never true Within the past 12 months, did you worry whether your food would run out before you got money to buy more?: Never true Do you have trouble paying for medicines?: No Do you have trouble getting transportation to medical appointments?: No Do you have trouble paying your heating and electricity bill?: No Do you have trouble taking care of your child, family member or friend?: No Do you have trouble with day-to-day activities such as bathing, preparing meals, shopping, managing finances, etc.?: No Are you currently unemployed and looking for a job?: No Are you interested in more education?: No Please select the resources that you would like help with: None Currently or been in a relationship where the following occur: no concerns reported THRIVE Score: 0 AUDIT C Alcohol Use Questionnaire (AUDIT-C) 1. How often do you have a drink containing alcohol?: Never 3. How often do you have six or more drinks on one occasion?: Never Total Score: 0 CLAUDETTE-7 AMB Questionnaire CLAUDETTE-7 Date CLAUDETTE - 7 assessed: 05/03/23 Source: Developed by Drs. Mo Bhatt, Tania Humphries, Travis Bowles and colleagues, with an educational laura from [employer]. Physical exam (Primary Care) Vital Signs: Last Vital Signs Pulse 78 05/03/23 10:48 BP 130/68 05/03/23 10:48 Pulse Ox 98 05/03/23 10:48 Oxygen Delivery Method Room Air 05/03/23 10:48 BMI result Body Mass Index 37.3 Tobacco/Smoking Status: Tobacco use Status Tobacco use date assessed 05/03/23 05/03/23 10:51 Patient Tobacco Use Status Never used Tobacco 05/03/23 10:51 e-Cigarette/Vaping Use Never Used 05/03/23 10:51 Thrive Assessment: Date of Thrive Assessment Date Thrive assessed 05/03/23 05/03/23 10:51 Currently or been in a relationship where the following occur: no concerns reported Const General: alert; No acute distress Eyes Conjunctivae: conjunctivae normal Resp Auscultation: clear to auscultation bilaterally Cardio Rate: regular rate Rhythm: regular rhythm GI Inspection: Yes normal to inspection Extrem General: Yes normal to inspection and No edema Results AMB Hemoglobin A1c AMB Hemoglobin A1c 6.0 % Last Edit by CHEPE Napier on 05/03/23 11:02 Results Reviewed Results Reviewed: Laboratory Last Values Hgb A1c (Clinic) 6.0 % (4.0-6.0) 05/03/23 10:40 Assessment and Plan Assessment & Plan (1) Type 2 diabetes mellitus with hyperglycemia: Comment: Dr. Soliman Code(s): E11.65 - Type 2 diabetes mellitus with hyperglycemia Qualifiers: Diabetes mellitus shelter insulin use: without shelter use Qualified Code(s): E11.65 - Type 2 diabetes mellitus with hyperglycemia Plan: Decrease the amount of carbohydrate intake, pasta, bread, rice and potatoes are all sugar and that is aside from all the sweet stuff, remember that fruits are good but they are Sweet also. Hemoglobin A1c goal of less than 7.0. Patient on diet control. (2) Hypercholesterolemia: Code(s): E78.00 - Pure hypercholesterolemia, unspecified Plan: Avoid fried foods, chicken skin, eggs, butter margarine, pastries and meat. Be it pork or beef they have a lot of cholesterol LDL goal of less than 100 patient on simvastatin 20 mg once a day concern that the October blood work shows an elevated LDL to 120 advised to repeat test. (3) GERD (gastroesophageal reflux disease): Code(s): K21.9 - Gastro-esophageal reflux disease without esophagitis Plan: Avoid the foods that causes that usually spicy foods, tomato products, juices, coffee, soda and foods that your sensitive to. After eating do not lie down, allow 3-4 hours before in lie down. And keep the head of bed above 30 degrees to avoid the acid from going up. (4) Hypertension: Code(s): I10 - Essential (primary) hypertension Qualifiers: Hypertension type: essential hypertension Qualified Code(s): I10 - Essential (primary) hypertension Plan: Continue with blood pressure medication. Decrease salt intake and exercise presently on 5 mg of lisinopril. Control (5) Obesity: Code(s): E66.9 - Obesity, unspecified Qualifiers: Obesity type: due to excess calories Obesity classification: adult class 3 (BMI >= 40) Serious obesity comorbidity presence: with serious comorbidity Body mass index: BMI 40.0-44.9 Qualified Code(s): E66.01 - Morbid (severe) obesity due to excess calories; Z68.41 - Body mass index [BMI]40.0- 44.9, adult Plan: Diet and exercise (6) Generalized anxiety disorder: Code(s): F41.1 - Generalized anxiety disorder Plan: Stable (7) Alopecia: Code(s): L65.9 - Nonscarring hair loss, unspecified (8) Tubular adenoma of colon: Code(s): D12.6 - Benign neoplasm of colon, unspecified Orders: Orders AMB Hemoglobin A1c Today E11.65 - Type 2 diabetes mellitus with hyperglycemia Referrals Dermatology Referral L65.9 - Nonscarring hair loss, unspecified Gastroenterology Referral D12.6 - Benign neoplasm of colon, unspecified Medications: Refilled tramadol 50 mg PO BID PRN 180 tabs 0RF pain 90 days Coding Level of Care Code Est Pt Level 4 (22992) Diagnoses Type 2 diabetes mellitus with hyperglycemia, without long-term current use of insulin E11.65 Diabetes mellitus termite control technician insulin use: without shelter use Hypercholesterolemia E78.00 GERD (gastroesophageal reflux disease) K21.9 Essential hypertension I10 Hypertension type: essential hypertension Class 3 severe obesity due to excess calories with serious comorbidity and body mass index (BMI) of 40.0 to 44.9 in adult E66.01; Z68.41 Obesity type: due to excess calories Obesity classification: adult class 3 (BMI >= 40) Serious obesity comorbidity presence: with serious comorbidity Body mass index: BMI 40.0-44.9 Generalized anxiety disorder F41.1 Alopecia L65.9 Tubular adenoma of colon D12.6
== END 2023-05-03 11:38 | disposition home or self-care (01) ==
PROVIDERS: PCP Internal Medicine; Visit Provider Internal Medicine
DX: E11.65 Type 2 diabetes mellitus with hyperglycemia (principal); E66.01 Morbid (severe) obesity due to excess calories; Z68.41 Body mass index [BMI] 40.0-44.9, adult; E78.00 Pure hypercholesterolemia, unspecified; K21.9 Gastro-esophageal reflux disease without esophagitis; I10 Essential (primary) hypertension; F41.1 Generalized anxiety disorder; L65.9 Nonscarring hair loss, unspecified; D12.6 Benign neoplasm of colon, unspecified
CPT/HCPCS: 83036; 99214

== ENCOUNTER 2023-06-28 14:17 | Outpatient (REF) | payer MEDICARE, SELFPAY | END 2023-06-28 14:18 | disposition home or self-care (01) | LOC: HO.MAMMO 14:17 | PROVIDERS: PCP Internal Medicine; Visit Provider Internal Medicine | DX: Z12.31 Encounter for screening mammogram for malignant neoplasm of breast (principal) | CPT/HCPCS: 77063; 77067 ==

== ENCOUNTER → 2023-06-28 14:45 | Outpatient (BNV) | payer MEDICARE, SELFPAY | PROVIDERS: PCP Internal Medicine; Visit Provider Radiology Diagnostic Radiology | DX: Z12.31 Encounter for screening mammogram for malignant neoplasm of breast (principal) | CPT/HCPCS: 77063; 77067 ==

== ENCOUNTER 2023-08-21 12:58 | Outpatient (REF) | payer MEDICARE, SELFPAY ==
[2023-08-21 13:15] LABS: MANUAL DIFF FLAG NO
[2023-08-21 13:45] LABS: Basophils Percent Auto 0.6 % (0-2); Eosinophils Absolute Auto 0.2 X10*3/uL (0.0-0.4); Eosinophils Percent Auto 2.8 % (0-4); Hematocrit 42.2 % (37.0-47.0); Hemoglobin 13.5 g/dl (12.0-16.0); Imm Gran Abs Auto 0.02 X10*3/uL (0.00-0.03); Imm Gran Pct Auto 0.3 % (0.0-0.4); Lymphocytes Absolute Auto 2.3 X10*3/uL (1.2-4.9); Lymphocytes Percent Auto 33.4 % (20-40); Mean Corpuscular Hemoglobin 26.7 pg (27.0-33.0); Mean Corpuscular Volume 83.6 fL (80.0-98.0); Mean Platelet Volume 10.9 fL (9.4-12.3); Monocytes Absolute Auto 0.6 X10*3/uL (0.1-1.2); Monocytes Percent Auto 8.3 % (2-11); Neutrophils Absolute Auto 3.8 x10*3/uL (2.0-8.3); Neutrophils Percent Auto 54.6 % (45-73); Platelet Count 269 X10*3/uL (160-400); Red Blood Count 5.05 X10*6/uL (4.20-5.50); Red Cell Distribution Width 13.2 % (11.0-16.0); White Blood Count 6.9 X10*3/uL (4.8-10.8)
[2023-08-21 13:50] LABS: Estimated Average Glucose 123 mg/dL; Hemoglobin A1c % 5.9 % (<6.0)
[2023-08-21 14:25] LABS: Alanine Aminotransferase 11 U/L (0-31); Alkaline Phosphatase 74 U/L (39-117); Anion Gap 14 (12-20); Aspartate Amino Transferase 15 U/L (5-31); Bilirubin Total 0.6 mg/dL (0.0-1.0); Blood Urea Nitrogen 11 mg/dL (9-16); Calcium 9.6 mg/dL (8.4-10.2); Carbon Dioxide 27 mmol/L (22-29); Chloride 106 mmol/L (96-108); Cholesterol 148 mg/dL (<200); Estimated Glomerular Filt Rate > 60; Glucose Random 112 mg/dL (60-115); HDL Cholesterol 38 mg/dL (>40); LDL Cholesterol Calculated 85 mg/dL (<100); Potassium 4.5 mmol/L (3.3-5.1); Sodium 142 mmol/L (135-145); Total Protein 7.7 g/dL (6.5-8.0); Triglycerides 129 mg/dL (<150)
[2023-08-21 15:49] LABS: Appearance Urine Clear; Color Urine Yellow; Glucose Urine UA Negative (Negative); Leukocyte Esterase Urine Small (1+) (Negative); Nitrite Urine Negative (Negative); PH 5.5 (5.0-9.0); UMIC TRIGGER UACC YES; Urine Blood Negative (Negative); Urine Ketones Negative (Negative); Urine Protein Negative (Neg-Trace)
[2023-08-21 15:57] LABS: Bacteria Urine None Seen (None Seen); Hyaline Casts Urine 0-2 /LPF (0-2); RBC Urine 0-2 /HPF (0-2); UACC Culture Trigger YES; WBC Urine 0-5 /HPF (0-5)
== END 2023-08-21 12:59 | disposition home or self-care (01) ==
LOC: HO.LAB 12:58
PROVIDERS: PCP Internal Medicine; Visit Provider Internal Medicine
DX: E78.00 Pure hypercholesterolemia, unspecified (principal); R05.9 Cough, unspecified; E11.65 Type 2 diabetes mellitus with hyperglycemia; R30.0 Dysuria; R10.9 Unspecified abdominal pain
CPT/HCPCS: 36415; 80053; 80061; 81001; 83036; 85025; 87086

== ENCOUNTER 2023-08-25 15:20 | Outpatient (AMB) | payer MEDICARE, SELFPAY ==
[2023-08-25 15:21] VITALS: BP 138/68; PULSE 66; O2SAT 97; BMI 38.1
--- NOTE | 2023-08-25 15:21 | A.OFFPC_ITS ---
Vital Signs 08/25/23 15:21 Height 5 ft 4 in Weight 222 lb 0.8 oz BMI 38.1 BP 138/68 Blood Pressure Location Lt brachial Position Sitting Pulse 66 Pulse Source Pulse Oximeter Pulse Oximetry (%) 97 Oxygen Delivery Method Room Air Intake Visit Reasons: DM Shutdown Planner Required: No Allergies No Known Allergies Allergy (Mild, Verified 08/25/23 15:22) NONE Medication List - Last Reconciled 08/25/23 by Ramesh Aguillon MD dorzolamide-timolol 22.3-6.8 mg/mL 1 drp ophthalmic (eye) latanoprost 0.005% 1 drp ophthalmic (eye) QPM lisinopril 5 mg PO DAILY omeprazole 20 mg PO DAILY simvastatin 20 mg PO BEDTIME timolol 0.5% 1 drp ophthalmic (eye) DAILY tramadol 50 mg PO BID PRN 90 days Tobacco use date assessed: 05/03/23 Fall risk assessment: No Falls in past year Last assessed Fall Risk: 08/25/23 Dental Screening Dental Screen Date: 05/03/23 HPI DM HPI Details 73-year-old obese female(5 lb weight gai n) with controlled diabetes mellitus hypercholesterolemia hypertension GERD generalized anxiety disorder last seen in 04/26/2023. Patient's colonoscopy is up-to-date mammogram is up-to-date bone density has been normal. PFSH Medical History GERD (gastroesophageal reflux disease) Glaucoma Hypercholesterolemia Hypertension Low back pain Obesity Obstructive sleep apnea RUQ abdominal pain Type 2 diabetes mellitus with hyperglycemia Vision loss, left eye Vitamin B12 deficiency Vitamin D deficiency Surgical History Hx of colonoscopy Family History Father Diabetes Hypertension FH: prostate cancer Mother Hypertension Diabetes Stroke CVD (cardiovascular disease) CAD (coronary artery disease) Daughter Cerebrovascular disease Brother Primary cancer of bone marrow Social History Housing: House Are you a primary home visit field care manager to a significant other at home: No Do you presently have visiting nurse or other home services: No Alcohol intake: never Patient Tobacco Use Status: Never used Tobacco e-Cigarette/Vaping Use: Never Used Second Hand Smoke Exposure: No service: No Current occupational status: retired Cognitive needs: No Hearing needs: No Vision needs: No Questionnaire Thrive Questionnaire Date Thrive assessed: 05/03/23 AUDIT C Alcohol Use Questionnaire (AUDIT-C) 1. How often do you have a drink containing alcohol?: Never 3. How often do you have six or more drinks on one occasion?: Never Total Score: 0 CLAUDETTE-7 AMB Questionnaire CLAUDETTE-7 Date CLAUDETTE - 7 assessed: 05/03/23 Source: Developed by Drs. Mo Bhatt, Tania Humphries, Travis Bowles and colleagues, with an educational laura from [employer]. Physical exam (Primary Care) Vital Signs: Last Vital Signs Pulse 66 08/25/23 15:21 BP 138/68 08/25/23 15:21 Pulse Ox 97 08/25/23 15:21 Oxygen Delivery Method Room Air 08/25/23 15:21 BMI result Body Mass Index 38.1 Tobacco/Smoking Status: Tobacco use Status Tobacco use date assessed 05/03/23 08/25/23 15:22 Patient Tobacco Use Status Never used Tobacco 08/25/23 15:22 e-Cigarette/Vaping Use Never Used 08/25/23 15:22 Thrive Assessment: Date of Thrive Assessment Date Thrive assessed 05/03/23 08/25/23 15:22 Const General: alert; No acute distress Eyes Conjunctivae: conjunctivae normal Resp Auscultation: clear to auscultation bilaterally Cardio Rate: regular rate Rhythm: regular rhythm GI Inspection: Yes normal to inspection Extrem General: Yes normal to inspection and No edema Assessment and Plan Assessment & Plan (1) Type 2 diabetes mellitus with hyperglycemia: Comment: Dr. Soliman Code(s): E11.65 - Type 2 diabetes mellitus with hyperglycemia Qualifiers: Diabetes mellitus watcher automat long goods insulin use: without watcher automat long goods use Qualified Code(s): E11.65 - Type 2 diabetes mellitus with hyperglycemia Plan: Decrease the amount of carbohydrate intake, pasta, bread, rice and potatoes are all sugar and that is aside from all the sweet stuff, remember that fruits are good but they are Sweet also. Hemoglobin A1c goal of less than 7.0 patient is diet controlled (2) Hypercholesterolemia: Code(s): E78.00 - Pure hypercholesterolemia, unspecified Plan: Avoid fried foods, chicken skin, eggs, butter margarine, pastries and meat. Be it pork or beef they have a lot of cholesterol LDL goal of less than 100 and triglyceride of less than 150 on simvastatin 20 mg at bedtime (3) GERD (gastroesophageal reflux disease): Code(s): K21.9 - Gastro-esophageal reflux disease without esophagitis Plan: Avoid the foods that causes that usually spicy foods, tomato products, juices, coffee, soda and foods that your sensitive to. After eating do not lie down, allow 3-4 hours before in lie down. And keep the head of bed above 30 degrees to avoid the acid from going up. (4) Hypertension: Code(s): I10 - Essential (primary) hypertension Qualifiers: Hypertension type: essential hypertension Qualified Code(s): I10 - E ssential (primary) hypertension Plan: Continue with blood pressure medication. Decrease salt intake and exercise patient takes lisinopril 5 mg once a day (5) Obesity: Code(s): E66.9 - Obesity, unspecified Qualifiers: Obesity type: due to excess calories Obesity classification: adult class 3 (BMI >= 40) Serious obesity comorbidity presence: with serious comorbidity Body mass index: BMI 40.0-44.9 Qualified Code(s): E66.01 - Morbid (severe) obesity due to excess calories; Z68.41 - Body mass index [BMI]40.0- 44.9, adult Plan: Diet and exercise (6) Generalized anxiety disorder: Code(s): F41.1 - Generalized anxiety disorder Plan: Stable (7) Tubular adenoma of colon: Code(s): D12.6 - Benign neoplasm of colon, unspecified Plan: 09/2023 scheduled (8) Osteopenia: Code(s): M85.80 - Other specified disorders of bone density and structure, unspecified site Plan: bone density requested (9) Tinea pedis: Code(s): B35.3 - Tinea pedis Orders: Orders XR DEXA axial skeleton Today M81.0 - Age-related osteoporosis without current pathological fracture, M85.80 - Other specified disorders of bone density and structure, unspecified site Medications: New ketoconazole 2% 1 appl topical BID 60 grams 1RF B35.3 - Tinea pedis Discontinued baclofen Discontinued Reason: Doctor's Order 10 mg PO BID 30 tabs 0RF R10.9 - Unspecified abdominal pain Coding Level of Care Code Est Pt Level 4 (78978) Diagnoses Type 2 diabetes mellitus with hyperglycemia, without long-term current use of insulin E11.65 Diabetes mellitus usp insulin use: without watcher automat long goods use Hypercholesterolemia E78.00 GERD (gastroesophageal reflux disease) K21.9 Essential hypertension I10 Hypertension type: essential hypertension Class 3 severe obesity due to excess calories with serious comorbidity and body mass index (BMI) of 40.0 to 44.9 in adult E66.01; Z68.41 Obesity type: due to excess calories Obesity classification: adult class 3 (BMI >= 40) Serious obesity comorbidity presence: with serious comorbidity Body mass index: BMI 40.0-44.9 Generalized anxiety disorder F41.1 Tubular adenoma of colon D12.6 Osteopenia M85.80 Tinea pedis B35.3
== END 2023-08-25 16:03 | disposition home or self-care (01) ==
PROVIDERS: PCP Internal Medicine; Visit Provider Internal Medicine
DX: E11.65 Type 2 diabetes mellitus with hyperglycemia (principal); E78.00 Pure hypercholesterolemia, unspecified; K21.9 Gastro-esophageal reflux disease without esophagitis; I10 Essential (primary) hypertension; E66.01 Morbid (severe) obesity due to excess calories; Z68.41 Body mass index [BMI] 40.0-44.9, adult; F41.1 Generalized anxiety disorder; D12.6 Benign neoplasm of colon, unspecified; M85.80 Other specified disorders of bone density and structure, unspecified site; B35.3 Tinea pedis
CPT/HCPCS: 99214

== ENCOUNTER 2023-09-15 08:19 | Day surgery (SDC) | payer MEDICARE, SELFPAY ==
[2023-09-13 13:57] VITALS: BMI 39.7
--- NOTE | 2023-09-15 08:50 | P.CONAN_ITS ---
HPI - Anesthesia Eval Consult details Narrative: colon screen [facility] Active Problems Active Problems: All Active Problems Tinea pedis (Acute) Osteopenia (Acute) Tubular adenoma of colon (Acute) Alopecia (Acute) Pneumonia (Acute) Cough (Acute) Diarrhea (Acute) Pelvic pain (Acute) Right flank pain (Acute) Trochanteric bursitis (Acute) Generalized anxiety disorder (Acute) Perioral tremor (Acute) Obesity due to excess calories (Acute) Obesity (Acute) Vitamin D deficiency (Acute) Hypertension (Acute) GERD (gastroesophageal reflux disease) (Acute) Obstructive sleep apnea (Acute) Vitamin B12 deficiency (Acute) Hypercholesterolemia (Acute) Type 2 diabetes mellitus with hyperglycemia (Acute) Past Medical History Medical History Anxiety Tubular adenoma Sleep apnea Urinary incontinence Arthritis Glaucoma Low back pain RUQ abdominal pain Obesity Vision loss, left eye Vitamin D deficiency Hypertension GERD (gastroesophageal reflux disease) Obstructive sleep apnea Vitamin B12 deficiency Hypercholesterolemia Type 2 diabetes mellitus with hyperglycemia Family History Family History Father Diabetes Hypertension FH: prostate cancer Mother Hypertension Diabetes Stroke CVD (cardiovascular disease) CAD (coronary artery disease) Daughter Cerebrovascular disease Brother Primary cancer of bone marrow Family history of problems with anesthesia: No Surgical History Surgical History Hx of cataract extraction Hx of colonoscopy History of Problems with Anesthesia: No Social History Social History Housing: House Are you a primary wound care physician to a significant other at home: No Do you presently have visiting nurse or other home services: No Alcohol intake: never Patient Tobacco Use Status: Never used Tobacco e-Cigarette/Vaping Use: Never Used Second Hand Smoke Exposure: No Advance Directives: No Advance Directives Information Provided: Yes service: No Current occupational status: retired Cognitive needs: No Hearing needs: No Vision needs: No Meds Allergies Allergy/AdvReac Type Severity Reaction Status Date / Time No Known Allergies Allergy Mild NONE Verified 08/25/23 15:22 Active Medications: Current Medications Lactated Ringer's (Lr) 1,000 mls @ 100 mls/hr IVCONT .Q10H FRANSISCA Home Medications ?Medication ?Instructions ?Recorded ?Confirmed ?Last Taken ?Type latanoprost 0.005 % eye drops 1 drp ophthalmic (eye) QPM 11/14/19 08/25/23 Unknown History timolol 0.5 % eye drops 1 drp ophthalmic (eye) DAILY 11/14/19 08/25/23 Unknown History dorzolamide 22.3 mg-timolol 6.8 1 drp ophthalmic (eye) 08/08/22 08/25/23 Unknown History mg/mL eye drops Exam Height,Weight and Vital Signs: Height 5 ft 3 in Weight 101.605 kg Airway Mallampati Class: II TM Dist: >3cm Neck ROM: Limited Denture: Upper Heart: rrr Lungs: cta Assessment and Plan Assessment Anesthesia Assessment: Anesthesia Plan Discussed Final Anesthetic Review Family History of Problems with Anesthesia: No History of Problems with Anesthesia: No NPO: Yes ASA Class: III Final Preanesthetic Review: No Changes in Pt Med Stat, Meds/Allgs Chart Reviewed and Consent Obtained/Reviewed Patient Risk: Intermediate Procedure Risk: Low Anesthetic Plan Anesthetic Plan: MAC: Disposition: Standard PACU
[2023-09-15 08:52] LABS: Glucose, Whole Blood 117 mg/dL (60-115)
[2023-09-15 08:57] VITALS: BP 140/68; PULSE 88; RESP 16; TEMP 36.6; O2SAT 97
--- NOTE | 2023-09-15 09:40 | MHC.SHP ---
Pre-Procedural Eval Section A - 24 Hr Update-Section A only Date of Service: 09/15/23 Section B - Complete if H&P > 30 days Chief Complaint: screening Details of Present Illness: see H&P no changes Relevant Family History (Specify if Yes): No Relevant Social History: None Present Medications: see Short Stay Collaborative assessment Medical History: No relevant PMH History of Previous Operations: No relevant previous surgery Allergies: Allergies Allergy/AdvReac Type Severity Reaction Status Date / Time No Known Allergies Allergy Mild NONE Verified 08/25/23 15:22 Review of Systems Sugical H&P ROS: Negative: Constitution, Cardiovascular, Respiratory, Neurological, Psychiatric, Hem-Onc, Allergic/Immunologic, Gastrointestinal, Genitourinary, Musculoskeletal, Integumentary, Endocrine and Eyes/Ears/Nose/Throat Exam Surgical H&P Exam: Normal: HEENT, Normal: Heart, Normal: Lungs, Normal: Extremities, Normal: Abdomen, Normal: Skin and Normal: Neurological Plan Diagnosis/Plan: Unchanged I have reviewed the history and physical and performed a pertinent physical examination on my patient. No changes have occurred unless specified. Time Spent With Patient Time: Total time managing care of this patient today ____ minutes.
[2023-09-15 10:15] VITALS: BP 90/54; PULSE 79; RESP 16; TEMP 36.1; O2SAT 97
[2023-09-15 10:30] VITALS: BP 103/62; PULSE 85; RESP 18; TEMP 36.4; O2SAT 96
--- NOTE | 2023-09-15 11:10 | OP_ITS ---
DATE OF SERVICE: 09/15/2023 SURGEON: Stanislav Harris MD INDICATIONS: Colon cancer screening and prior history of adenomatous colon polyps. PREOPERATIVE DIAGNOSIS: POSTOPERATIVE DIAGNOSIS: PROCEDURE PERFORMED: Colonoscopy to the terminal ileum. ESTIMATED BLOOD LOSS: COMPLICATIONS: ANESTHESIA: Monitored anesthesia care. ASSISTANTS: SPECIMENS: DESCRIPTION OF PROCEDURE: History and physical performed. The risks and benefits of the procedure were explained to the patient. Informed consent was obtained. The patient was placed in the left lateral decubitus position. A digital rectal exam was performed and was found to be normal. The Olympus pediatric video-colonoscope was introduced into the rectum and advanced to the cecum. The cecum was identified by transillumination, palpation, and identification of the ileocecal valve. Examination was performed. The scope was removed. She tolerated the procedure well and was taken to recovery area in stable condition. FINDINGS: The terminal ileum was examined and appeared normal. The visualized colonic mucosa was within normal limits without evidence of masses or ulcers. No polyps were identified. The quality of prep was fair with some liquid stool coating the mucosa in the right colon. This was washed and suction. No polyps were identified. Retroflexed examination was normal. Moderate diverticulosis of the sigmoid was noted. IMPRESSION: Normal colonoscopy. RECOMMENDATION: Repeat colonoscopy in 5 years for family history. MD CHHAYA Haynes/ASH / [phone]
== END 2023-09-15 10:55 | disposition home or self-care (01) ==
PROVIDERS: PCP Internal Medicine; Visit Provider Internal Medicine Gastroenterology
PROC: 0DJD8ZZ Inspection of Lower Intestinal Tract, Via Natural or Artificial Opening Endoscopic (ICD-10-PCS; CPT 45378; principal; 2023-09-15 10:10)
DX: Z12.11 Encounter for screening for malignant neoplasm of colon (principal); Z86.010 Personal history of colon polyps; Z83.719 Family history of colon polyps, unspecified; K57.30 Diverticulosis of large intestine without perforation or abscess without bleeding; I10 Essential (primary) hypertension; E11.65 Type 2 diabetes mellitus with hyperglycemia; E78.00 Pure hypercholesterolemia, unspecified; K21.9 Gastro-esophageal reflux disease without esophagitis; G47.33 Obstructive sleep apnea (adult) (pediatric); Z99.89 Dependence on other enabling machines and devices; Z79.899 Other long term (current) drug therapy
CPT/HCPCS: G0105; 82947; J2704

== ENCOUNTER 2023-09-21 12:50 | Outpatient (REF) | payer MEDICARE, SELFPAY ==
--- NOTE | ~2023-09-21 | MM_ITS ---
EXAMINATION: BONE DENSITOMETRY CLINICAL INDICATION: Age-related osteoporosis without current pathological fracture. COMPARISON: Previous BD dated 09/02/2016 and baseline BD dated 09/25/2009. TECHNIQUE: Using a [employer] DXA System (software version: 13.1) manufactured by [employer], dual-energy x-ray absorptiometry was performed of the lumbar spine and left hip. The images are of good technical quality. Summary results are attached. FINDINGS: LEFT FEMUR, NECK: Current: BMD 1.046 g/cm2, Z-score 1.2, T-score 0.1, normal. Prior: BMD 1.120 g/cm2. Baseline: BMD 1.201 g/cm2. LEFT FEMUR, TOTAL: Current: BMD 1.138 g/cm2, Z-score 1.9, T-score 1.0, normal, 4.6% decrease from previous, 12.3% decrease from baseline (<5% change is not significant). Prior: BMD 1.193 g/cm2. Baseline: BMD 1.290 g/cm2. AP SPINE L1-L4: Current: BMD 1.415 g/cm2, Z-score 2.5, T-score 2.0, normal, 0.4% increase from previous, 4.6% decrease from baseline (<5% change is not significant). Prior: BMD 1.410 g/cm2. Baseline: BMD 1.484 g/cm2. IDENTIFIED RISK FACTORS: Height loss, menopause. HISTORY OF FRACTURE: None listed. MEDICATIONS: Vitamin D. MM/XR DEXA axial skeleton IMPRESSION: 1. DIAGNOSIS: Normal bone density based on the lowest T-score value of 0.1 in the femoral neck applying World Health Organization criteria. 2. 10-YEAR FRACTURE RISK PREDICTION, FRAX: According to the guidelines, FRAX calculation should only be performed on patients in the osteopenia bone density category. Therefore, FRAX was not performed on this patient. 3. Treatment Recommendations: NOF guidelines recommend consideration for treatment in postmenopausal women and men age 50 and older presenting with the following: -A hip or vertebral (clinical or morphometric) fracture. -T-score less than or equal to -2.5 at the femoral neck or spine after appropriate evaluation to exclude secondary causes. -Low bone mass at the hip or spine and a 10-year fracture probability by FRAX of greater than or equal to 3% for hip fracture or greater than or equal to 20% for major osteoporotic fracture based on the [place] adapted WHO algorithm. 4. Other Recommendations: All treatment decisions require clinical judgment and consideration of individual patient factors, including patient preferences, comorbidities, previous drug use, risk factors not captured in the FRAX model (e.g. frailty, falls, vitamin D deficiency, increased bone turnover, interval significant decline in bone density) and possible under or overestimation of fracture risk by FRAX. FUTURE SCAN RECOMMENDATION: People with diagnosed cases of osteoporosis or at high risk for fracture should have regular bone mineral density tests. For patients eligible for Medicare, routine testing is allowed once every 2 years. The testing frequency can be increased to one year for patients who have rapidly progressing disease, those who are receiving or discontinuing medical therapy to restore bone mass, or have additional risk factors.
== END 2023-09-21 12:51 | disposition home or self-care (01) ==
LOC: HO.MAMMO 12:50
PROVIDERS: PCP Internal Medicine; Visit Provider Internal Medicine
DX: M81.0 Age-related osteoporosis without current pathological fracture (principal); M85.80 Other specified disorders of bone density and structure, unspecified site
CPT/HCPCS: 77080

== ENCOUNTER 2024-06-18 15:32 | Outpatient (AMB) | payer MEDICARE, SELFPAY ==
--- NOTE | 2024-06-18 15:53 | A.OFFPC_ITS ---
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 Accompanied by: Self / Same As Patient Allergies No Known Allergies Allergy (Mild, Verified 06/18/24 15:58) NONE Medication List - Last Reconciled 06/18/24 by Ramesh Aguillon MD dorzolamide-timolol 22.3-6.8 mg/mL 1 drp ophthalmic (eye) ketoconazole 2% 1 appl topical BID latanoprost 0.005% 1 drp ophthalmic (eye) QPM lisinopril 5 mg PO DAILY omeprazole 20 mg PO DAILY simvastatin 20 mg PO BEDTIME timolol 0.5% 1 drp ophthalmic (eye) DAILY tramadol 50 mg PO BID PRN 90 days Tobacco use date assessed: 06/18/24 Fall risk assessment: No Falls in past year Last assessed Fall Risk: 06/18/24 Dental Screening Dental Screen Date: 06/18/24 Did you have a dental visit in the last 12 months?: No Did you have a dental problem in the last 6 months where you did not have access to dental care?: No Was dental information given to patient?: Patient has dentist [facility] Medical History Anxiety Tubular adenoma Sleep apnea Urinary incontinence Arthritis Glaucoma Low back pain RUQ abdominal pain Obesity Vision loss, left eye Vitamin D deficiency Hypertension GERD (gastroesophageal reflux disease) Obstructive sleep apnea Vitamin B12 deficiency Hypercholesterolemia Type 2 diabetes mellitus with hyperglycemia Surgical History Hx of cataract extraction Hx of colonoscopy Family History Father Diabetes Hypertension FH: prostate cancer Mother Hypertension Diabetes Stroke CVD (cardiovascular disease) CAD (coronary artery disease) Daughter Cerebrovascular disease Brother Primary cancer of bone marrow Social History Housing: House Are you a primary care support representative to a significant other at home: No Do you presently have visiting nurse or other home services: No Alcohol intake: never Patient Tobacco Use Status: Never used Tobacco e-Cigarette/Vaping Use: Never Used Second Hand Smoke Exposure: No service: No Current occupational status: retired Cognitive needs: No Hearing needs: No Vision needs: No Questionnaire Thrive Questionnaire Date Thrive assessed: 06/18/24 I am a: Patient What is your living situation today?: I have a steady place to live Within the past 12 months, did the food you bought not last and you didn't have the money to get more?: Never true Within the past 12 months, did you worry whether your food would run out before you got money to buy more?: Never true Do you have trouble paying for medicines?: No Do you have trouble getting transportation to medical appointments?: No Do you have trouble paying your heating and electricity bill?: No Do you have trouble taking care of your child, family member or friend?: No Do you have trouble with day-to-day activities such as bathing, preparing meals, shopping, managing finances, etc.?: No Are you currently unemployed and looking for a job?: No Are you interested in more education?: No Please select the resources that you would like help with: None Currently or been in a relationship where the following occur: No concerns reported THRIVE Score: 0 AUDIT C Alcohol Use Questionnaire (AUDIT-C) 1. How often do you have a drink containing alcohol?: Never Total Score: 0 Score Reviewed/Action Taken: No CLAUDETTE-7 AMB Questionnaire CLAUDETTE-7 Date CLAUDETTE - 7 assessed: 05/03/23 Source: Developed by Drs. Mo Bhatt, Tania Humphries, Travis Bowles and colleagues, with an educational laura from [employer]. Physical exam (Primary Care) Vital Signs: Last Vital Signs Temp 97.3 F 06/18/24 15:54 Pulse 74 06/18/24 15:54 BP 144/74 H 06/18/24 15:54 Pulse Ox 97 06/18/24 15:54 Oxygen Delivery Method Room Air 06/18/24 15:54 BMI result Body Mass Index 40.0 Tobacco/Smoking Status: Tobacco use Status Tobacco use date assessed 06/18/24 06/18/24 16:00 Patient Tobacco Use Status Never used Tobacco 06/18/24 15:54 e-Cigarette/Vaping Use Never Used 06/18/24 15:54 Thrive Assessment: Date of Thrive Assessment Date Thrive assessed 06/18/24 06/18/24 16:00 Currently or been in a relationship where the following occur: No concerns reported Const General: alert; No acute distress Eyes Conjunctivae: conjunctivae normal Resp Auscultation: clear to auscultation bilaterally Cardio Rate: regular rate Rhythm: regular rhythm GI Inspection: Yes normal to inspection Extrem General: Yes normal to inspection and No edema Results AMB Hemoglobin A1c AMB Hemoglobin A1c 5.9 % Last Edit by Deneen Fan CMA on 06/18/24 16:04 Coding Level of Care Code Est Pt Level 4 (77860) Complex EM visit Add On G2211 Diagnoses Type 2 diabetes mellitus with hyperglycemia, without long-term current use of insulin E11.65 Diabetes mellitus correction insulin use: without oysterman use Hypercholesterolemia E78.00 GERD (gastroesophageal reflux disease) K21.9 Essential hypertension I10 Hypertension type: essential hypertension Class 3 severe obesity due to excess calories with serious comorbidity and body mass index (BMI) of 40.0 to 44.9 in adult E66.01; Z68.41 Obesity type: due to excess calories Obesity classification: adult class 3 (BMI >= 40) Serious obesity comorbidity presence: with serious comorbidity Body mass index: BMI 40.0-44.9 Generalized anxiety disorder F41.1 Assessment & Plan Assessment & Plan (1) Type 2 diabetes mellitus with hyperglycemia: Comment: Dr. Soliman Code(s): E11.65 - Type 2 diabetes mellitus with hyperglycemia Category: Medical Qualifiers: Diabetes mellitus correction insulin use: without correction use Qualified Code(s): E11.65 - Type 2 diabetes mellitus with hyperglycemia Plan: Decrease the amount of carbohydrate intake, pasta, bread, rice and potatoes are all sugar and that is aside from all the sweet stuff, remember that fruits are good but they are Sweet also. Hemoglobin A1c goal of less than 7.0. Patient is diet controlled (2) Hypercholesterolemia: Code(s): E78.00 - Pure hypercholesterolemia, unspecified Category: Medical Plan: Avoid fried foods, chicken skin, eggs, butter margarine, pastries and meat. Be it pork or beef they have a lot of cholesterol LDL goal of less than 100 and triglyceride of less than 150 on simvastatin 20 mg once a day (3) GERD (gastroesophageal reflux disease): Code(s): K21.9 - Gastro-esophageal reflux disease without esophagitis Category: Medical Plan: Avoid the foods that causes that usually spicy foods, tomato products, juices, coffee, soda and foods that your sensitive to. After eating do not lie down, allow 3-4 hours before in lie down. And keep the head of bed above 30 degrees to avoid the acid from going up. (4) Hypertension: Code(s): I10 - Essential (primary) hypertension Category: Medical Qualifiers: Hypertension type: essential hypertension Qualified Code(s): I10 - Essential (primary) hypertension Plan: Continue with blood pressure medication. Decrease salt intake and exercise patient on lisinopril 5 mg once a day (5) Obesity: Code(s): E66.9 - Obesity, unspecified Category: Medical Qualifiers: Obesity type: due to excess calories Obesity classification: adult class 3 (BMI >= 40) Serious obesity comorbidity presence: with serious comorbidity Body mass index: BMI 40.0-44.9 Qualified Code(s): E66.01 - Morbid (severe) obesity due to excess calories; Z68.41 - Body mass index [BMI]40.0- 44.9, adult Plan: Diet and exercise (6) Generalized anxiety disorder: Code(s): F41.1 - Generalized anxiety disorder Category: Medical Plan History of Present Illness The patient is a 74-year-old female presenting for a routine follow-up on her chronic health conditions, such as obesity and type 2 diabetes mellitus, amongst others. Her healthcare concerns include weight-related balance issues. She remains under controlled diabetic status, with recent lab work affirming normal glucose control levels. The conversation focused on exploring medication options for weight management, such as the drug Mounjaro, with understanding of its impact and insurance coverage constraints. Health Maintenance - Last colonoscopy in September 2023 was normal. - Bone density test in September 2023 showed normal results. - Last mammogram in July 2023 was normal. - Patient is due for shingles vaccination. Social History - No information on employment or family status discussed. - Patient acknowledges issues with balance potentially related to obesity. Review of Systems - General: Denies major changes, general fatigue. - Endocrine: Reports well-managed diabetes, with concerns around weight. - Cardiovascular: Denies chest pain or palpitations. - Gastrointestinal: Reports managed GERD symptoms. - Neurological: Reports balance issues. - Psychological: Reports anxiety. Physical Exam Results - Labs: Normal hemoglobin A1c at 5.9. LDL cholesterol at 85. Normal renal function and electrolytes. - Tests and Diagnostics: Bone density normal. Colonoscopy normal. Plan We addressed the current management of chronic conditions, focusing on weight loss options for the patient's obesity, with medications like Mounjaro discussed for potential use. The importance of lifestyle changes was highlighted. Recent labs confirm controlled diabetes and cholesterol levels. Vaccination for shingles is recommended. We'll continue evaluating the impact of new treatments on balance and mobility issues. Patient was informed and verbally consented to the use of an ambient scribe for clinic note documentation during this visit. Discussion Notes I explained the current state of the patient's chronic health issues, with a focal point on weight management and its broader implications. We deliberated medication options such as Mounjaro and its possible benefits and limitations, including any existing insurance concerns, discussing the drug's ability to promote a feeling of fullness leading to weight loss. The patient voiced understanding of the medication's potential efficacy and side effects. En couragement was given towards ongoing health maintenance measures, including vaccinations. There was emphasis on regular monitoring and follow-up care in the event her weight does not respond as expected to treatment regimens. Patient Instructions - Consider medication for weight loss, such as Mounjaro. - Monitor blood glucose levels as per diabetic management plan. - Attend regular follow-ups for comprehensive health evaluation. - Receive shingles vaccination. - Engage in lifestyle changes to assist in weight loss efforts. - Discuss any side effects of new medications or interventions with me immediately. Orders: Orders AMB Hemoglobin A1c Today E11.65 - Type 2 diabetes mellitus with hyperglycemia Complete Blood Count Auto Diff Today E11.65 - Type 2 diabetes mellitus with hyperglycemia Vitamin D 25-OH Total Today E11.65 - Type 2 diabetes mellitus with hyperglycemia Microalbumin, Random (w Creat) Today E11.65 - Type 2 diabetes mellitus with hyperglycemia Hemoglobin A1c Today E11.65 - Type 2 diabetes mellitus with hyperglycemia Free T4 (Free Thyroxine) Today E11.65 - Type 2 diabetes mellitus with hyperglycemia Thyroid Stimulating Hormone Today E11.65 - Type 2 diabetes mellitus with hyperglycemia Lipid Panel Today E11.65 - Type 2 diabetes mellitus with hyperglycemia, E78.00 - Pure hypercholesterolemia, unspecified Vitamin B12 and Folate Today E11.65 - Type 2 diabetes mellitus with hyperglycemia Creatinine Urine Today E11.65 - Type 2 diabetes mellitus with hyperglycemia Medications: New tirzepatide (Mounjaro) for 4 weeks 2.5 mg (0.5 mL) subcut QWEEK 2 mL 1RF E11.65 - Type 2 diabetes mellitus with hyperglycemia Refilled simvastatin 20 mg PO BEDTIME 90 tabs 3RF E78.00 - Pure hypercholesterolemia, unspecified tramadol 50 mg PO BID 90 days PRN 180 tabs 0RF pain E11.65 - Type 2 diabetes mellitus with hyperglycemia lisinopril 5 mg PO DAILY 90 tabs 3RF I10 - Essential (primary) hypertension
[2024-06-18 15:54] VITALS: BP 144/74; PULSE 74; TEMP 36.3; O2SAT 97; BMI 40.0
--- OUTSIDE RECORDS SUMMARY | 2024-06-18 16:20 | XMS_ITS ---
Author Organization [facility] Address [address] [place] [address] Care Team Providers Care [employer] Name Role Phone Ramesh Aguillon MD Primary Care Provider Stanislav Horowitz Jr [phone] REASON FOR VISIT screening Encounters Encounter Location Date Provider Diagnosis [facility] [address] [place], [place] [id number] 09/15/2023 Stanislav Harris Jr Colon cancer screening Z12.11 and Family history of colon cancer Z80.0 Assessments Encounter Date Diagnosis (ICD Code) Assessment Notes Treatment Notes Treatment Clinical Notes Section Notes 09/15/2023 Colon cancer screening (ICD-10 - Z12.11) 09/15/2023 Family history of colon cancer (ICD-10 - Z80.0) Plan Of Treatment No Information Progress Notes * CHANDAN MULLINSADOB:1950 (74 yo F)Acc No.[id number]:09/15/2023 COLON WITH MAC Patient:?HARPREET EVELYNE Provider:?Stanislav Harris MD :1950???Age:73 Y???Sex:Female D ate:09/15/2023 Address:[address] [place], [place] [id number] Pcp:Ramesh Aguillon MD Subjective: * Chief Complaints: * ???1. Screening. * Medical History:? Objective: * Vitals:? Assessment: * Assessment: 1.?Colon cancer screening - Z12.11 (Primary)???2.?Family history of colon cancer - Z80.0??? Plan: * Treatment: * Procedure Codes:?20547 DIAGN OSTIC COLONOSCOPY * * The named appointment provid er may or may not be the originator of this progress note, and it is not deemed complete until electronically signed by the appointment provider. Sign off status: Pending * Provider:?Stainslav Harris MD Date:?0 09/15/2023 Generated for Karson guallpa/Osman/Kenanitting on:?06/18/2024 04:19 PM EDT
--- OUTSIDE RECORDS SUMMARY | 2024-06-18 16:20 | XMS_ITS ---
Author Organization [facility] Address [address] [place] [address] Care Team Providers Care [employer] Name Role Phone Ramesh Aguillon MD Primary Care Provider Stanislav Horowitz Jr [phone] Allergies No Known Allergies REASON FOR VISIT Patient presents today for a colon screening Medications Medication SIG (Take, Route, Frequency, Duration) Notes Start Date End Date Status Simvastatin 20 MG TOME HODA TABLETA POR VIA ORAL A DIARIO AL ACOSTARSE 90 Oral for 90 Active Omeprazole 20 MG TOME HODA CAPSULA TOD OS LOS D? Oral for 90 Active MiraLax (colon prep) 17 GM/SCOOP mixed with Gatorade or Crystal Light Orally begin at 5:00 p.m. the day before the procedure for 1 day 08/09/2023 Active Lisinopril 5 MG TOME HODA TABLETA POR V?A ORAL TODOS LOS D? Oral for 90 Active traMADol HCl 50 MG (Schedule IV Drug) T OME HODA TABLETA DOS VECES AL D?A Oral twice a day Active Social History Tobacco Use: Social History Observation Description Date Details (start date - stop date) Never Smoker NA - NA Tobacco Use/Smoking Question Answer Notes Patient is a nonsmoker Alcohol Screen Question Answer Notes Did you have a drink containing alcohol in the p ast year? No Points 0 Interpretation Negative Vital Signs Temperature 97.8 degrees Fahrenheit 08/09/19 24 Blood pressure systolic 000 mm Hg 08/09/19 24 Blood pressure diastolic 00 mm Hg 024 Height 63 in 08/09/2023 Weight 224 lbs 08/09/2023 BMI 39.68 kg/m2 08/09/2023 Encounters Encounter Location Date Provider Diagnosis [facility] [address] [place] [id number] 08/09/2023 Stanislav Harris Jr Colon cancer screening Z12.11 and Encounter for other preprocedural examination Z01.818 Assessments Encounter Date Diagnosis (ICD Code) Assessment Notes Treatment Notes Treatment Clinical Notes Section Notes 08/09/2023 Colon cancer screening (ICD-10 - Z12.11) We discussed colonoscopy today. We discussed risks and benefits of the procedure today. She understands these and agrees to proceed. 08/09/2023 Encounter for other preprocedural examination (ICD-10 - Z01.818) We discussed colonoscopy today. We discussed risks and benefits of the procedure today. She understands these and agrees to proceed. Plan Of Treatment Medication Medication Name Sig Start Date Stop Date Notes MiraLax (colon prep) 17 GM/SCOOP mixed with Gatorade or Crystal Light Orally begin at 5:00 p.m. the day before the procedure for 1 day 08/09/2023 Future Test Test Name Order Date COLONOSCOPY 08/09/2023 Next Appt Details Follow Up: 1 Year, Reason: Progress Notes * SHARI MULLINSB:1950 (73 yo F)Acc No.[id number]:08/09/2023 Progress Notes Patient:?EVELYNE MULLINS Provider:?Stanislav Harris MD :1950???Age:73 Y???Sex:Female D ate:08/09/2023 Address:[address] [place], [place] [id number] Pcp:Ramesh Aguillon MD Subjective: * Chief Complaints: * ???1. Patient presents today for a colon screening. * HPI: ???New symptom(s):? The patient is a pleasant 73-year-old woman seen today for her preoperative colonoscopy visit. She has no complaints of rectal bleeding or change in her bowel habits. Previous colonoscopy in 2019 showed a tubular adenoma. * ROS:?General/Constitutional:?Change in appetite?denies.?Fatigue?denies.?ENT:?Patient denies?difficulty swallowing.?Respiratory:?Patient denies?shortness of breath.?Cardiovascular:?Patient denies?chest pain.?Gastrointestinal:?Comments?See HPI for details.?Genitourinary:?Difficulty urinating?denies.?Incontinence?denies.?Musculoskeletal:?Patient denies?muscle aches.?Skin:?Patient denies?pruritis.?Neurologic:?Patient denies?low back pain.?Psychiatric:?Patient denies?mental or physical abuse.? * Medical History:?Hypertensio n, Hypercholesterolemia, GERD, Arthritis, Urinary incontinence, JASIEL/CPAP, Colonoscopy 11/24, tubular adenoma, five-year followup. * Surgical History:?Cataract r epair 09/28. * Family History:?Father: dece ased.?Mother: .?Siblings: alive, diagnosed with Colon polyps.? No family history of liver cancer. Not sure if dad had prostate cancer or colon cancer. * Social History:?Tobacco Use:?Tobacco Use/Smoking?Patient is a?nonsmoker.?Drugs/Alcohol:?Alcohol Screen?Did you have a drink containing alcohol in the past year??No,?Points?0,?Interpretation?Negative.?Miscellaneous:?Marital status: . Occupation: retired. * Medications:?Taking Simvasta tin 20 MG Tablet TOME HODA TABLETA POR VIA ORAL A DIARIO AL ACOSTARSE 90 Oral , Taking traMADol HCl 50 MG Tablet (Schedule IV Drug) TOME HODA TABLETA DOS VECES AL D?A Oral twice a day, Taking Lisinopril 5 MG Tablet TOME HODA TABLETA POR V?A ORAL TODOS LOS D? Oral , Taking Omeprazole 20 MG Capsule Delayed Release TOME HODA CAPSULA TODOS LOS D? Oral , Medication List reviewed and reconciled with the patient * Allergies:?N.K.D.A. Objective: * Vitals:?Wt: 224 lbs, Ht: 63 in, BMI:39.68 Index, BP: 000/00 mm Hg, Temp: 97.8. * Examination: ???General Examination: ?GENERAL APPEARANCE:?in no acute distress.?HEAD:?normocephalic.?EYES:?sclera non-icteric.?ORAL CAVITY:?mucosa moist.?NECK/THYROID:?no lymphadenopathy.?SKIN:?anicteric.?HEART:?S1, S2 normal, no murmurs.?LUNGS:?clear to auscultation bilaterally.?CHEST:?normal shape and expansion.?ABDOMEN:?soft, nontender, nondistended, bowel sounds present, no organomegaly .?EXTREMITIES:?no clubbing, cyanosis, or edema.?PSYCH:?cognitive function intact.? Assessment: * Assessment: 1.?Encounter for other prepr ocedural examination - Z01.818 (Primary)?2.?Colon cancer screening - Z12.11? We discussed colonoscopy tod ay. We discussed risks and benefits of the procedure today. She understands these and agrees to proceed. Plan: * Treatment: * Procedure Codes:?3017F COLOR ECTAL CA SCREEN DOC REV, G9903 Pt scrn tbms id as non user, G9744 PATIENT NOT ELIG D/T ACTIVE DX HTN * Preventive Medicine:? ??Counseling:?Care goal follow-up plan:?Above Normal BMI Follow-up?Giving encouragement to exercise,?BMI management provided?Yes.? ??Urinary Incontinence:?Urinary Incontinence?Assessment:?Absent,?Plan of care documented:?No, reason not specified.? * Follow Up:?1 Year * * Sign off status: Completed true * Provider:?Stanislav Harris MD Date:?0 08/09/2023 Generated for Karson guallpa/Osman/Kenanitting on:?06/18/2024 04:19 PM EDT History and Physical Notes * HPI (History of Present Illness) Category Sub-Category Detail Notes Category Not es New symptom(s) The patient i s a pleasant 73-year-old woman seen today for her preoperative colonoscopy visit. She has no complaints of rectal bleeding or change in her bowel habits. Previous colonoscopy in 2019 showed a tubular adenoma. Examination Category Sub-Category Detail Notes Category Not es General Examination GENERAL APPEARANCE: in no acute di stress HEAD: normocephalic EYES: sclera non-icteric NECK/THYROID: no lymphadenopathy HEART: S1, S2 normal, no mu rmurs CHEST: normal shape and exp ansion LUNGS: clear to auscultatio n bilaterally ABDOMEN: soft, nontender, non distended, bowel sounds present, no organomegaly SKIN: anicteric EXTREMITIES: no clubbing, cyanosi s, or edema PSYCH: cognitive function i ntact ORAL CAVITY: mucosa moist
--- OUTSIDE RECORDS SUMMARY | 2024-06-18 16:20 | XMS_ITS | Patient Health Record ---
Author Organization [facility] Address [address] [place] [address] Care Team Providers Care Tie Knitter Helper Name Role Phone Po Ramesh STERN Primary Care Provider Stanislav Horowitz Jr Unavailable [phone] Allergies No Known Allergies Results Component Value Reference Range Notes Glucose, Whole Blood Reviewed date:09/15/2023 03:26:56 PM Interpretation: Performing Lab:[facility], [address] [place] [phone] Notes/Report: Glucose, Whole Blood 117 60-115 mg/dL METER # : [id number] Reason For Referral Referred Organization [facility] Referred Provider Stanislav Harris Jr Referred Address [address] [place] [address], ite [address] [place] [phone], Referred Provider Specialty Gastroentero logy Referral Priority Routine Medications Medication SIG (Take, Route, Frequency, Duration) Notes Start Date End Date Status Simvastatin 20 MG TOME HOAD TABLETA POR VIA ORAL A DIARIO AL [...] AL D?A Oral twice a day Active Immunizations Vaccine Route Administration Date Status Comme nts Influenza Unknown 10/07/2017 Administered Influenza Unknown 11/29/2022 Administered Social History Tobacco Use: Social History Observation Description Date Details (start date - stop date) Never Smoker NA - NA Tobacco Use/Smoking Question Answer Notes Patient is a nonsmoker Alcohol Screen Question Answer Notes Did you have a drink containing alcohol in the p ast year? No Points 0 Interpretation Negative Problems Problem Type SNOMED Code ICD Code Onset Dates Problem Status W/U Status Risk Notes Problem 868415329 Colon cancer screening (Z12.11) Active confirmed Problem [id number] Encounter for other preprocedural examination (Z01.818) Active confirmed Vital Signs Temperature 97.8 degrees Fahrenheit 08/09/2023 Blood pressure diastolic 00 mm Hg 08/09/2023 Height 63 in 08/09/2023 Blood pressure systolic 000 mm Hg 08/09/2023 Weight 224 lbs 08/09/2023 BMI 39.68 kg/m2 08/09/2023 Encounters Encounter Location Date Provider Diagnosis [facility] Outpatient [address] [place] [id number] 09/15/2023 Stanislav Harris Jr Colon cancer screening Z12.11 and Family history of colon cancer Z80.0 [facility] [address] [place] [address] 08/09/2023 Stanislav Harris Jr Colon cancer screening Z12.11 and Encounter for other preprocedural examination Z01.818 Assessments Encounter Date Diagnosis (ICD Code) Assessment Notes Treatment Notes Treatment Clinical Notes Section Notes 09/15/2023 Colon cancer screening (ICD-10 - Z12.11) 09/15/2023 Family history of colon cancer (ICD-10 - Z80.0) 08/09/2023 Colon cancer screening (ICD-10 - Z12.11) We discussed colonoscopy today. We discussed risks and benefits of the procedure today. She understands these and agrees to proceed. 08/09/2023 Encounter for other preprocedural examination (ICD-10 - Z01.818) We discussed colonoscopy today. We discussed risks and benefits of the procedure today. She understands these and agrees to proceed. Plan Of Treatment Future Test Test Name Order Date COLONOSCOPY 08/30/2018 COLONOSCOPY 08/09/2023 Insurance Providers Payer Name Payer Address Payer Phone Subscriber Number Group Number Insured Name Patient Relationship to Insured Coverage Start Date Coverage End Date [facility] PROFESSIONAL CLAIMS [address] [place] [address] [id number] EVELYNE MULLINS Self - patient is the insured Medical (General) History Medical History History ICD Code hypertension hypercholesterolemia GERD Arthritis urinary incontinence JASIEL/CPAP Colonoscopy 11/24, tubular adenoma, five -year followup Surgical History Surgery Date(Month/Year) Cataract repair 09/28
--- OUTSIDE RECORDS SUMMARY | 2024-06-18 16:20 | XMS_ITS ---
Author Organization [facility] Address [address] [facility] [address] [facility] [address] [place] [address] Care Team Providers Care Country Director Name Role Phone Ramesh Aguillon MD Primary Care Provider Stanislav Horowitz Jr REASON FOR VISIT Patient presents today for a COLON SCREENING Encounters Encounter Location Date Provider Diagnosis [facility] [address] [address] 08/07/2023 Stanislav Harris Jr Plan Of Treatment No Information Progress Notes * CHANDAN MULLINSALLEGRAB:1950 (74 yo F)Acc No.[id number]:08/07/2023 Progress Notes Patient:?EVELYNE MULLINS Provider:?Stanislav Harris MD :1950???Age:73 Y???Sex:Female D ate:08/07/2023 Address:[address] [place], [place] [id number] Pcp:Ramesh Aguillon MD Subjective: * Chief Complaints: * ???1. Patient presents today for a COLON SCREENING. * Medical History:? Objective: * Vitals:? Assessment: Plan: * Treatment: * * The named appointment provid er may or may not be the originator of this progress note, and it is not deemed complete until electronically signed by the appointment provider. Sign off status: Pending * Provider:?Stanislav Harris MD Date:?0 08/07/2023 Generated for Mgi ramu/Osman/eTransmitting on:?06/18/2024 04:20 PM EDT
== END 2024-06-18 16:21 | disposition home or self-care (01) ==
LOC: HO.HMCH 15:33
PROVIDERS: PCP Internal Medicine; Visit Provider Internal Medicine
DX: I10 Essential (primary) hypertension (principal); E11.65 Type 2 diabetes mellitus with hyperglycemia; E66.01 Morbid (severe) obesity due to excess calories; Z68.41 Body mass index [BMI] 40.0-44.9, adult; E78.00 Pure hypercholesterolemia, unspecified; K21.9 Gastro-esophageal reflux disease without esophagitis; F41.1 Generalized anxiety disorder

== ENCOUNTER → 2024-06-18 15:32 | Outpatient (BNVA) | payer MEDICARE, SELFPAY | PROVIDERS: PCP Internal Medicine; Visit Provider Internal Medicine | DX: E11.65 Type 2 diabetes mellitus with hyperglycemia (principal); E78.00 Pure hypercholesterolemia, unspecified; K21.9 Gastro-esophageal reflux disease without esophagitis; I10 Essential (primary) hypertension; E66.01 Morbid (severe) obesity due to excess calories; Z68.41 Body mass index [BMI] 40.0-44.9, adult; F41.1 Generalized anxiety disorder | CPT/HCPCS: 83036; 99212 ==

== ENCOUNTER 2024-07-03 14:14 | Outpatient (REF) | payer MEDICARE, SELFPAY ==
--- OUTSIDE RECORDS SUMMARY | 2024-07-03 15:10 | XMS_ITS ---
Author Organization [facility] Address [address] [place] [address] Care Team Providers Care Wire Saw Operator Name Role Phone Ramesh Aguillon MD Primary Care Provider Stanislav Horowitz Jr [phone] Allergies No Known Allergies REASON FOR VISIT [...] 08/09/2023 Encounters Encounter Location Date Provider Diagnosis [facility] [address] [facility] [facility] [address] [place] [address] 08/09/2023 Stanislav Harris Jr Colon cancer screening [...] Notes * SHARI MULLINSB:1950 (73 yo F)Acc No.[id number]:08/09/2023 Progress Notes Patient:?EVELYNE MULLINS Provider:?Stanislav Harris MD :1950???Age:73 Y???Sex:Female D ate:08/09/2023 Address:[address] [place], [place] [id number] Pcp:Ramesh Aguillon MD Subjective: * Chief Complaints: [...] CA SCREEN DOC REV, G9903 Pt scrn tbok id as non user, G9744 PATIENT NOT ELIG D/T ACTIVE DX HTN * Preventive Medicine:? ??Counseling:?Care goal follow-up plan:?Above Normal BMI Follow-up?Giving encouragement to exercise,?BMI management provided?Yes.? ??Urinary Incontinence:?Urinary Incontinence?Assessment:?Absent,?Plan of care documented:?No, reason not specified.? * Follow Up:?1 Year * * Sign off status: Completed true * Provider:?Stanislav Harris MD Date:?0 08/09/2023 Generated for Karson guallpa/Osman/Kenanitting on:?07/03/2024 03:09 PM EDT History and Physical Notes * [...]
== END 2024-07-03 14:15 | disposition home or self-care (01) ==
LOC: HO.MAMMO 14:14
PROVIDERS: PCP Internal Medicine; Visit Provider Internal Medicine
DX: Z12.31 Encounter for screening mammogram for malignant neoplasm of breast (principal)
CPT/HCPCS: 77063; 77067

== ENCOUNTER → 2024-07-03 14:30 | Outpatient (BNV) | payer MEDICARE, SELFPAY | PROVIDERS: PCP Internal Medicine; Visit Provider Internal Medicine | DX: Z12.31 Encounter for screening mammogram for malignant neoplasm of breast (principal) | CPT/HCPCS: 77063; 77067 ==

== ENCOUNTER 2024-10-11 15:26 | Outpatient (AMB) | payer MEDICARE, SELFPAY ==
--- OUTSIDE RECORDS SUMMARY | 2023-08-07 09:55 | XMS_ITS ---
Author Organization [facility] Address [address] [facility] [address] [place] [id number] Care Team Providers Care Contact Center Engineer Name Role Phone Ramesh Aguillon MD Primary Care Provider Stanislav Horowitz Jr REASON FOR VISIT Patient presents today for a COLON SCREENING Encounters Encounter Location Date Provider Diagnosis [facility] [address] [address] 08/07/2023 Stanislav Harris Jr Plan Of Treatment No Information Progress Notes * CHANDAN MULLINSALLEGRAB:1950 (74 yo F)Acc No.[id number]:08/07/2023 Progress Notes Patient: EVELYNE MULTANI Provider: Fide Harris MD :1950 A ge:73 Y S ex:Female Date:08/07/2023 Address:[address] [place], [place] [id number] Pcp:Ramesh Aguillon MD Subjective: * Chief Complaints: * 1 . Patient presents today for a COLON SCREENING. * Medical History: Objective: * Vitals: Assessment: Plan: * Treatment: * * The named appointment provid er may or may not be the originator of this progress note, and it is not deemed complete until electronically signed by the appointment provider. Sign off status: Pending * Provider: Fide Harris MD Date: 08/07/2023 Generated for Karson guallpa/Osman/eTransmitting on: 10/11/2024 03:32 PM EDT
--- OUTSIDE RECORDS SUMMARY | 2023-09-15 06:10 | XMS_ITS ---
Author Organization [facility] Address [address] [place] [address] Care Team Providers Care Plate Stacker Name Role Phone Ramesh Aguillon MD Primary Care Provider Stanislav Horowitz Jr [phone] REASON FOR VISIT screening Encounters Encounter Location Date Provider Diagnosis [facility] Outpatient [address] [place] [phone] 09/15/2023 Stanislav Harris Jr Colon cancer screening Z12.11 and Family history of colon cancer Z80.0 Assessments Encounter Date Diagnosis (ICD Code) Assessment Notes Treatment Notes Treatment Clinical Notes Section Notes 09/15/2023 Colon cancer screening (ICD-10 - Z12.11) 09/15/2023 Family history of colon cancer (ICD-10 - Z80.0) Plan Of Treatment No Information Progress Notes * SHARI MULLINSB:1950 (74 yo F)Acc No.[id number]:09/15/2023 COLON WITH MAC Patient: EVELYNE MULTANI Provider: Fide Harris MD :1950 A ge:73 Y S ex:Female Date:09/15/2023 Address:[address] [place], [place] [phone] Pcp:Ramesh Aguillon MD Subjective: * Chief Complaints: * 1 . Screening. * Medical History: Objective: * Vitals: Assessment: * Assessment: 1. C olon cancer screening - Z12.11 (Primary) 2 . F amily history of colon cancer - Z80.0 Plan: * Treatment: * Procedure Codes: 4 5378 DIAGNOSTIC COLONOSCOPY * * The named appointment provid er may or may not be the originator of this progress note, and it is not deemed complete until electronically signed by the appointment provider. Sign off status: Pending * Provider: Fide Harris MD Date: 09/15/2023 Generated for Karson guallpa/Osman/Kenanitting on: 10/11/2024 03:32 PM EDT
[2024-10-11 15:30] VITALS: BP 144/80; PULSE 83; O2SAT 97; BMI 40.4
--- NOTE | 2024-10-11 15:30 | MHC.PC.OV ---
Vital Signs 10/11/24 15:30 10/11/24 15:52 Height 5 ft 3 in Weight 228 lb BMI 40.4 BP 144/80 H 140/70 H Blood Pressure Location Lt brachial Lt brachial Position Sitting Sitting Pulse 83 Pulse Source Pulse Oximeter Pulse Oximetry (%) 97 Oxygen Delivery Method Room Air Intake Visit Reasons: 3 month Intake Note: Patient has been feeling very off balance. Allergies No Known Allergies Allergy (Mild, Verified 10/11/24 15:30) NONE Medication List - Last Reconciled 10/11/24 by Ramesh Aguillon MD dorzolamide-timolol 22.3-6.8 mg/mL 1 drp ophthalmic (eye) ketoconazole 2% 1 appl topical BID latanoprost 0.005% 1 drp ophthalmic (eye) QPM lisinopril 10 mg PO DAILY omeprazole 20 mg PO DAILY simvastatin 20 mg PO BEDTIME timolol 0.5% 1 drp ophthalmic (eye) DAILY tramadol 50 mg PO BID PRN 90 days Tobacco use date assessed: 06/18/24 Fall risk assessment: No Falls in past year Last assessed Fall Risk: 10/11/24 Dental Screening Dental Screen Date: 06/18/24 [facility] Medical History (Updated 10/11/24 @ 16:04 by Ramesh Aguillon MD) Anxiety Tubular adenoma Sleep apnea Urinary incontinence Arthritis Glaucoma Low back pain RUQ abdominal pain Obesity Vision loss, left eye Vitamin D deficiency Hypertension GERD (gastroesophageal reflux disease) Obstructive sleep apnea Vitamin B12 deficiency Hypercholesterolemia Type 2 diabetes mellitus with hyperglycemia Surgical History Hx of cataract extraction Hx of colonoscopy Family History Father Diabetes Hypertension FH: prostate cancer Mother Hypertension Diabetes Stroke CVD (cardiovascular disease) CAD (coronary artery disease) Daughter Cerebrovascular disease Brother Primary cancer of bone marrow Social History Housing: House Are you a primary rn managed care to a significant other at home: No Do you presently have visiting nurse or other home services: No Alcohol intake: never Patient Tobacco Use Status: Never used Tobacco Tobacco use type: Cigarette e-Cigarette/Vaping Use: Never Used Second Hand Smoke Exposure: No service: No Current occupational status: retired Cognitive needs: No Hearing needs: No Vision needs: No Questionnaire PHQ-9 Over the last 2 weeks, how often have you been bothered by any of the following problems? 1. Little interest or pleasure in doing things: not at all 2. Feeling down, depressed, or hopeless: not at all 3. Trouble falling or staying asleep, or sleeping too much: not at all 4. Feeling tired or having little energy: not at all 5. Poor appetite or overeating: not at all 6. Feeling bad about yourself - or that you are a failure or have let yourself or your family down: not at all 7. Trouble concentrating on things, such as reading the newspaper or watching television: not at all 8. Moving or speaking so slowly that other people could have noticed. Or the opposite - being so fidgety or restless that you have been moving around a lot more than usual: not at all 9. Thoughts that you would be better off or of hurting yourself in some way: not at all Total score: 0 Depression Screening Interpretation: Negative Depression Screening Done: Yes Source: Developed by Drs. Mo Bhatt, Tania Humphries, Travis Bowles and colleagues, with an educational laura from [employer]. Thrive Questionnaire Date Thrive assessed: 06/18/24 I am a: Patient What is your living situation today?: I have a steady place to live Within the past 12 months, did the food you bought not last and you didn't have the money to get more?: Never true Within the past 12 months, did you worry whether your food would run out before you got money to buy more?: Never true Do you have trouble paying for medicines?: No Do you have trouble getting transportation to medical appointments?: No Do you have trouble paying your heating and electricity bill?: No Do you have trouble taking care of your child, family member or friend?: No Do you have trouble with day-to-day activities such as bathing, preparing meals, shopping, managing finances, etc.?: No Are you currently unemployed and looking for a job?: No Are you interested in more education?: No Please select the resources that you would like help with: None Currently or been in a relationship where the following occur: No concerns reported THRIVE Score: 0 AUDIT C Alcohol Use Questionnaire (AUDIT-C) 1. How often do you have a drink containing alcohol?: Never 3. How often do you have six or more drinks on one occasion?: Never Total Score: 0 CLAUDETTE-7 AMB Questionnaire CLAUDETTE-7 Date CLAUDETTE - 7 assessed: 10/11/24 Feeling nervous, anxious, or on edge: 0 = Not at all Not being able to stop or control worryin = Not at all Worrying too much about different things: 0 = Not at all Trouble relaxin = Not at all Being so restless that it is hard to sit still: 0 = Not at all Becoming easily annoyed or irritable: 0 = Not at all Feeling afraid as if something awful might happen: 0 = Not at all Total CLAUDETTE-7 score (0-4 normal; 5-9 mild; 10-14 moderate; 15-21 severe): 0 Source: Developed by Drs. Mo Bhatt, Tania Humphries, Travis Bowles and colleagues, with an educational laura from [employer]. Physical exam (Primary Care) Vital Signs: Last Vital Signs Pulse 83 10/11/24 15:30 BP 140/70 H 10/11/24 15:52 Pulse Ox 97 10/11/24 15:30 Oxygen Delivery Method Room Air 10/11/24 15:30 BMI result Body Mass Index 40.4 Tobacco/Smoking Status: Tobacco use Status Tobacco use date assessed 06/18/24 10/11/24 15:31 Patient Tobacco Use Status Never used Tobacco 10/11/24 15:31 Tobacco use type Cigarette 10/11/24 15:31 e-Cigarette/Vaping Use Never Used 10/11/24 15:31 PHQ-9: PHQ-9 Score PHQ-9: Total score 0 10/11/24 15:56 Depression Screening Interpretation: Negative Thrive Assessment: Date of Thrive Assessment Date Thrive assessed 06/18/24 10/11/24 15:31 Currently or been in a relationship where the following occur: No concerns reported Const General: alert; No acute distress Eyes Conjunctivae: conjunctivae normal Resp Auscultation: clear to auscultation bilaterally Cardio Rate: regular rate Rhythm: regular rhythm GI Inspection: Yes normal to inspection Extrem General: Yes normal to inspection and No edema Results AMB Hemoglobin A1c AMB Hemoglobin A1c 5.7 % Last Edit by Allyson Price CMA on 10/11/24 15:57 Results Reviewed Results Reviewed: Laboratory Last Values Hgb A1c (Clinic) 5.7 % (4.0-6.0) 10/11/24 15:32 Coding Level of Care Code Est Pt Level 4 (59017) Complex EM visit Add On G2211 Diagnoses Type 2 diabetes mellitus with hyperglycemia, without long-term current use of insulin E11.65 Diabetes mellitus senior living insulin use: without engineering consultant use Essential hypertension I10 Hypertension type: essential hypertension Hypercholesterolemia E78.00 Morbid obesity E66.01 GERD (gastroesophageal reflux disease) K21.9 Obstructive sleep apnea G47.33 Left arm pain M79.602 Assessment & Plan Assessment & Plan (1) Type 2 diabetes mellitus with hyperglycemia: Comment: Dr. Soliman L eye blind Code(s): E11.65 - Type 2 diabetes mellitus with hyperglycemia Category: Medical Qualifiers: Diabetes mellitus senior living insulin use: without engineering consultant use Qualified Code(s): E11.65 - Type 2 diabetes mellitus with hyperglycemia Plan: Decrease the amount of carbohydrate intake, pasta, bread, rice and potatoes are all sugar and that is aside from all the sweet stuff, remember that fruits are good but they are Sweet also. Hemoglobin A1c goal of less than 7.0. Patient on diet control (2) Hypertension: Code(s): I10 - Essential (primary) hypertension Category: Medical Qualifiers: Hypertension type: essential hypertension Qualified Code(s): I10 - Essential (primary) hypertension Plan: Continue with blood pressure medication. Decrease salt intake and exercise patient is on lisinopril 5 mg once a day patient needs blood work (3) Hypercholesterolemia: Code(s): E78.00 - Pure hypercholesterolemia, unspecified Category: Medical Plan: Avoid fried foods, chicken skin, eggs, butter margarine, pastries and meat. Be it pork or beef they have a lot of cholesterol LDL goal of less than 100 and triglyceride of less than 150 patient needs blood work on simvastatin 20 mg at bedtime (4) Morbid obesity: Code(s): E66.01 - Morbid (severe) obesity due to excess calories Category: Medical Plan: Diet and exercise (5) GERD (gastroesophageal reflux disease): Code(s): K21.9 - Gastro-esophageal reflux disease without esophagitis Category: Medical Plan: Avoid the foods that causes that usually spicy foods, tomato products, juices, coffee, soda and foods that your sensitive to. After eating do not lie down, allow 3-4 hours before in lie down. And keep the head of bed above 30 degrees to avoid the acid from going up. (6) Obstructive sleep apnea: Comment: 2018 advised full face medium mask 10 cm H20 Code(s): G47.33 - Obstructive sleep apnea (adult) (pediatric) Category: Medical (7) Left arm pain: Code(s): M79.602 - Pain in left arm Category: Medical Plan History of Present Illness The patient is a 74-year-old female presenting for a follow-up visit. The patient has a history of morbid obesity and diabetes mellitus, managed with diet control, with a hemoglobin A1c goal of less than 7.0%. Her last hemoglobin A1c was 5.9% in August 2024, indicating good control. She has hypercholesterolemia, with an LDL cholesterol level of 85 mg/dL, and is on simvastatin 20 mg at bedtime. The goal is to maintain LDL cholesterol below 100 mg/dL. The patient has obstructive sleep apnea and uses a CPAP machine regularly at night, which is important for her cardiovascular health. She has a history of gastroesophageal reflux disease (GERD) and is currently taking omeprazole for management. Hypertension is managed with lisinopril, recently increased from 5 mg to 10 mg daily to better control her blood pressure, which was slightly elevated during the visit. The patient has generalized anxiety disorder as part of her medical history. She has a history of tubular adenoma of the colon, with the last colonoscopy performed in June 2024. Osteopenia was noted, with the last bone density scan conducted in September 2023. Anemia was initially suspected but blood work showed a normal blood count. The patient has glaucoma and cataracts, with regular follow-ups with her eye doctor. She also reports varicose veins, which are noted to be common due to prolonged standing. Health Maintenance - Mammogram is up to date - Last colonoscopy in June 2024 - Last bone density scan in September 2023 - Regular eye doctor visits for glaucoma and cataracts - CPAP machine use for obstructive sleep apnea Social History Review of Systems - Cardiovascular: Reports elevated blood pressure. Denies chest pain. - Endocrine: Reports good control of blood sugar levels. 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 - Musculoskeletal: Reports pain in the shoulder and knee. - Neurological: Reports dizziness and balance issues. Physical Exam Results - Labs: Normal blood count, normal electrolytes, normal renal function, elevated blood sugar at 117 mg/dL, hemoglobin A1c at 5.9%, normal liver function, LDL cholesterol at 85 mg/dL, normal thyroid test in October 2022. Plan Patient was informed and verbally consented to the use of an ambient scribe for clinic note documentation during this visit. 1. Morbid Obesity The patient is advised to continue with diet control and increase physical activity to manage her morbid obesity. 2. Diabetes Mellitus The patient's diabetes is managed with diet control, aiming for a hemoglobin A1c goal of less than 7.0%. Her last hemoglobin A1c was 5.9%, indicating good control. 3. Hypercholesterolemia The patient is on simvastatin 20 mg at bedtime, with a goal to maintain LDL cholesterol below 100 mg/dL. 4. Obstructive Sleep Apnea The patient uses a CPAP machine regularly at night, which is important for her cardiovascular health. 5. Gastroesophageal Reflux Disease (Gerd) The patient is currently taking omeprazole for management of GERD. 6. Hypertension The patient's lisinopril dosage was increased from 5 mg to 10 mg daily to better control her blood pressure. Her blood pressure was noted to be slightly elevated during the visit. 7. Generalized Anxiety Disorder The patient has a history of generalized anxiety disorder, which is part of her medical history. 8. History Of Tubular Adenoma Of The Colon The patient had a colonoscopy in June 2024 to monitor her history of tubular adenoma of the colon. 9. Osteopenia The patient had a bone density scan in September 2023 to monitor her osteopenia. 10. Anemia Anemia was initially suspected but blood work showed a normal blood count. 11. Glaucoma The patient has glaucoma and is under regular follow-up with her eye doctor. 12. Cataract The patient has cataracts and is under regular follow-up with her eye doctor. 13. Varicose Veins The patient reports varicose veins, which are noted to be common due to prolonged standing. Discussion Notes During the visit, I discussed the importance of managing the patient's diabetes through diet control and maintaining a hemoglobin A1c goal of less than 7.0%. We reviewed her current medications, including simvastatin for hypercholesterolemia and lisinopril for hypertension, and adjusted the lisinopril dosage to better control her blood pressure. I emphasized the need for regular use of the CPAP machine for her obstructive sleep apnea and discussed the management of her GERD with omeprazole. We also talked about her eye health, including regular follow-ups for glaucoma and cataracts. Patient Instructions - Continue with diet control and increase physical activity to manage weight. - Take simvastatin 20 mg at bedtime as prescribed. - Take lisinopril 10 mg daily to manage blood pressure. - Use CPAP machine regularly at night for sleep apnea. - Take omeprazole as prescribed for GERD. - Schedule regular follow-ups with the eye doctor for glaucoma and cataracts. Orders: Orders XR shoulder LT min 2V Today M79.602 - Pain in left arm AMB Hemoglobin A1c Today Z13.9 - Encounter for screening, unspecified XR humerus LT Today M79.602 - Pain in left arm PT Evaluation and Treatment Today R26.81 - Unsteadiness on feet Medications: Changed From lisinopril 5 mg PO DAILY 90 tabs 3RF I10 - Essential (primary) hypertension To lisinopril 10 mg PO DAILY 30 tabs 4RF I10 - Essential (primary) hypertension Refilled omeprazole 20 mg PO DAILY 90 caps 3RF K21.9 - Gastro-esophageal reflux disease without esophagitis tramadol 50 mg PO BID PRN 180 tabs 0RF pain 90 days E11.65 - Type 2 diabetes mellitus with hyperglycemia
--- OUTSIDE RECORDS SUMMARY | 2024-10-11 15:33 | XMS_ITS | Patient Health Record ---
Author Organization [facility] Address [address] [place] [address] Care Team Providers Care Manufacturing Specialist Name Role Phone Po Ramesh STERN Primary Care Provider Stanislav Horowitz Jr [phone] Allergies No Known Allergies Reason For Referral No Information Medications Medication SIG (Take, Route, Frequency, Duration) [...] Problem Status W/U Status Risk Notes Problem [id number] Colon cancer screening (Z12.11) Active confirmed Problem 966462729 Encounter for other preprocedural examination (Z01.818) Active confirmed Plan Of Treatment Future Test Test Name Order Date COLONOSCOPY 08/30/2018 COLONOSCOPY 08/09/2023 Insurance Providers Payer Name Payer Address Payer Phone Subscriber Number Group Number Insured Name Patient Relationship to Insured Coverage Start Date Coverage End Date [facility] PROFESSIONAL CLAIMS [address] [place] [address] [id number] EVELYNE MULLINS Self - patient is the insured Medical (General) History Medical History History ICD Code hypertension hypercholesterolemia GERD Arthritis urinary incontinence JASIEL/CPAP Colonoscopy 11/24, tubular adenoma, five -year followup Surgical History Surgery Date(Month/Year) Cataract repair 09/28
[2024-10-11 15:52] VITALS: BP 140/70
== END 2024-10-11 16:08 | disposition home or self-care (01) ==
LOC: HO.HMCH 15:27
PROVIDERS: PCP Internal Medicine; Visit Provider Internal Medicine
DX: E11.65 Type 2 diabetes mellitus with hyperglycemia (principal); E66.01 Morbid (severe) obesity due to excess calories; Z68.41 Body mass index [BMI] 40.0-44.9, adult; I10 Essential (primary) hypertension; E78.00 Pure hypercholesterolemia, unspecified; K21.9 Gastro-esophageal reflux disease without esophagitis; G47.33 Obstructive sleep apnea (adult) (pediatric); M79.602 Pain in left arm

== ENCOUNTER → 2024-10-11 15:26 | Outpatient (BNVA) | payer MEDICARE, SELFPAY | PROVIDERS: PCP Internal Medicine; Visit Provider Internal Medicine | DX: E11.65 Type 2 diabetes mellitus with hyperglycemia (principal); I10 Essential (primary) hypertension; E78.00 Pure hypercholesterolemia, unspecified; E66.01 Morbid (severe) obesity due to excess calories; K21.9 Gastro-esophageal reflux disease without esophagitis; G47.33 Obstructive sleep apnea (adult) (pediatric); M79.602 Pain in left arm; M85.80 Other specified disorders of bone density and structure, unspecified site; D64.9 Anemia, unspecified; I83.90 Asymptomatic varicose veins of unspecified lower extremity; R26.81 Unsteadiness on feet; Z68.41 Body mass index [BMI] 40.0-44.9, adult; Z99.89 Dependence on other enabling machines and devices; Z79.899 Other long term (current) drug therapy | CPT/HCPCS: 83036; 96127; 99212 ==